=== PATIENT | male | born 1955 | race Caucasian/White ===

== ENCOUNTER 2025-04-25 06:28 | Day surgery (SDC) | payer OTHER, SELFPAY | END 2025-04-25 14:38 | disposition home or self-care (01) | LOC: GI 06:28 | PROVIDERS: ATTENDING PHYSICIAN Internal Medicine Gastroenterology | DX: Z12.11 Encounter for screening for malignant neoplasm of colon (principal); Z86.0100 Personal history of colon polyps, unspecified; K57.30 Diverticulosis of large intestine without perforation or abscess without bleeding; K64.8 Other hemorrhoids | CPT/HCPCS: G0105 ==

== ENCOUNTER 2025-05-08 12:26 | Inpatient (IN) | payer OTHER, SELFPAY ==
[2025-05-08] VITALS (19 sets, daily range): BP systolic 96–180; BP diastolic 66–117; BMI 26.7
--- NOTE | 2025-05-08 11:14 | ED.GENMED ---
History of Present Illness
General
Chief Complaint: Chest Pain
Time Seen by Provider: 05/08/25 11:10
History of Present Illness
History of Present Illness:
PAST MEDICAL HISTORY AND REVIEW OF OLD RECORDS
- The patient denies any significant past medical history. He has never been to a sales enablement lead. He did have a colonoscopy earlier this month that showed diverticula.
Note:
CHIEF COMPLAINT(S)
Chest pressure since last night
HISTORY OF PRESENT ILLNESS
The patient is a 68-year-old male who presents with chest pressure that began at approximately 9:00 PM last night. He describes the sensation as constant since its onset, with no significant variation in intensity over time. The patient reports that
the chest pressure feels like a heavy weight and is localized to the chest area. He did experience relief temporarily after vomiting. The patient denies a history of cardiac issues and has never been evaluated by a sales enablement lead. He has not
experienced any significant kidney problems or undergone dialysis in the past. Upon evaluation in the emergency department, an electrocardiogram was obtained, which suggested the possibility of a myocardial infarction. He received aspirin and
nitroglycerin, the latter of which did not provide noticeable relief.
The patient initially described pain using 2 fingers to the lower part of the chest wall anteriorly near the midline however later in the stay in the emerged part stated that he was pain-free.
PHYSICAL EXAM
General: Alert, no acute distress. Joking.
Skin: Warm, dry.
Head: Normocephalic, atraumatic.
Neck: Supple, trachea midline.
Eyes, Ears, Nose, and Throat: Oral mucosa moist.
Cardiovascular: Normal peripheral perfusion, no edema. No significant chest wall tenderness.
Respiratory: Respirations are non-labored. Breath sounds are equal. Regular rhythm.
Gastrointestinal: Abdomen nondistended.
Back: Normal range of motion, normal alignment.
Musculoskeletal: Normal range of motion, normal strength.
Neurological: Alert and oriented to person, place, time, and situation, no focal neurological deficit observed.
Psychiatric: Cooperative, appropriate mood and affect.
PROBLEM LIST
Acute: Inferior ST elevation ND
DIFFERENTIAL DIAGNOSIS
The Differential Diagnosis includes, in no particular order and is not limited to:
1. Myocardial infarction
2. Gastroesophageal reflux disease
3. Pulmonary embolism
4. Aortic dissection
5. Pericarditis
6. Costochondritis
7. Pneumothorax
8. Musculoskeletal chest pain
9. Esophageal spasm
10. Panic attack or anxiety-related chest pain
RADIOLOGY
-
EKG
- EKG shows ST elevation in the inferior leads along with T wave inversion laterally
LABS
- Troponin 6.2, normal renal function, normal hemoglobin
UPDATE
- The patient arrived at 11:08 AM an EKG was obtained at 11:10 AM which confirms inferior STEMI. Visual Stylist team came down immediately and I notified Dr. Campo of the patient presentation even before the patient arrived.
SUMMARY OF ENCOUNTER
The patient, a 68-year-old male, presented to the emergency department with chest pressure that began last night. An electrocardiogram (EKG) confirmed an inferior ST segment elevation myocardial infarction (STEMI) with respiratory changes. The
patient was evaluated by Dr. Jinny Herrera, and Dr. 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
EMERGENCY TREATMENTS ADMINISTERED
Prior to arrival, the patient received aspirin. In the emergency department, he was administered ticagrelor (Brilinta) and started on heparin.
MANAGEMENT OF THE PATIENTS CARE WAS DISCUSSED WITH
The patients care was discussed with Dr. Campo, Dr. Jinny Herrera, and Dr. Hardin, who may take the patient to the mill labor supervisor for further intervention.
MEDICATION RECONCILIATION
The patient received aspirin, ticagrelor, and heparin during the emergency visit.
MEDICAL DECISION MAKING
-Complexity of Data Reviewed: Acute condition addressed is suspected myocardial infarction.
-Data:
Category 1
My independent interpretation of the EKG confirms inferior ST segment elevation myocardial infarction.
Category 3
Discussion of management with Dr. Campo, Dr. Jinny Herrera, and Dr. Hardin.
DIAGNOSIS
Myocardial infarction, ST elevation (STEMI) of inferior wall, initial episode of care (I21.11).
Phy Exam
Physical Exam
Physical Exam:
See HPI
Scores
Heart Score for Chest Pain Patients
STEMI patient?: Yes
Course
Orders/Labs/Results
Orders:
Orders
05/08/25
Electrocardiogram (*1) Stat
Reason for Study: Chest Pain
Comment: DONE
05/08/25 Lunch
Cholesterol Lowering
At Your Request: Full Participation
Does patient need a safe tray?: No
Cholesterol Lowering: Sodium, 2 Gram
05/08/25 11:11
Complete Blood Count/With Diff Urgent
Comprehensive Metabolic Panel Urgent
PTT Urgent
Prothrombin Time Urgent
Troponin I Urgent
05/08/25 11:13
Heparin 5,000 units IV NOW STA
Pharmacy Request to Place See Dose Instructions PO NOW STA
Discontinue all Active Warfarin orders?: Yes
Nursing to Place Non Medication Order As Directed
Physician Order: PTT 6 hours after initial start of Heparin infusion
Above order entered?: Yes
05/08/25 11:15
Heparin 74226 Units/250 ml 25,000 units in 250 ml IV PER PROTOCOL
Weight to be used for heparin protocol in kilograms (kg):: 91.7
Protocol:: Cardiac Tx/Acute Coronary
PTT Goal Range to be used:: PTT 73 to 111 seconds
Order type:: Initial
INITIAL Infusion Dose (UNITS/KG/hr) & then follow protocol:: 15 units/kg/hr
Infusion Dose in UNITS/hr & then follow protocol (UNITS/hr):: 1,400
INFUSION RATE in mL/hr & then follow protocol (mL/hr):: 14
PTT less than or equal to 64 seconds:: Increase rate by 200 units/hr (+ 2 mL/hr)
PTT 64.1 to 72.9 seconds:: Increase rate by 100 units/hr (+ 1 mL/hr)
PTT 73 to 111 seconds:: Target Range. No change in rate.
PTT 111.1 to 130.9 seconds:: Decrease rate by 100 units/hr (- 1 mL/hr)
PTT 131 to 199.9 seconds:: HOLD for 1 hr. Then decrease rate by 200 units/hr (- 2 mL/hr)
PTT greater than or equal to 200 seconds:: HOLD for 2 hrs & Notify Provider. Then decrease by 200 units/hr (-
2 mL/hr)
Lab follow-up:: Each change, PTT q6h until 2 consecutive are therapeutic. Then PTT
daily.
05/08/25 11:16
Fentanyl Citrate/Pf [Sublimaze] 100 mcg .ROUTE .STK-MED ONE
Heparin 10,000 units .ROUTE .STK-MED ONE
Heparin 1000 Units/500 ml [Heparin] 1,000 units in 500 ml .ROUTE .STK-MED
Heparin Sodium,Porcine/Ns/Pf [Heparin 2000 Units/1000 ml] 2,000 unit in 1,000 ml .ROUTE .STK-MED
Lidocaine HCl/Pf [Xylocaine-Mpf 1% Vial] 100 mg .ROUTE .STK-MED ONE
Midazolam HCl [Versed] 2 mg .ROUTE .STK-MED ONE
Nitroglycerin [Tridil] 1,500 mcg .ROUTE .STK-MED ONE
Verapamil Injectable [Isoptin/Verapamil Injection] 5 mg .ROUTE .STK-MED ONE
05/08/25 11:18
Ticagrelor [Brilinta] 180 mg .ROUTE .STK-MED ONE
05/08/25 11:19
Heparin 5,000 units .ROUTE .STK-MED ONE
05/08/25 11:30
Heparin 91671 Units/250 ml 25,000 units in 250 ml IV PER PROTOCOL
Weight to be used for heparin protocol in kilograms (kg):: 91.7
Protocol:: Cardiac Tx/Acute Coronary
PTT Goal Range to be used:: PTT 73 to 111 seconds
Order type:: Initial
INITIAL Infusion Dose (UNITS/KG/hr) & then follow protocol:: 15 units/kg/hr
Infusion Dose in UNITS/hr & then follow protocol (UNITS/hr):: 1,400
INFUSION RATE in mL/hr & then follow protocol (mL/hr):: 14
PTT less than or equal to 64 seconds:: Increase rate by 200 units/hr (+ 2 mL/hr)
PTT 64.1 to 72.9 seconds:: Increase rate by 100 units/hr (+ 1 mL/hr)
PTT 73 to 111 seconds:: Target Range. No change in rate.
PTT 111.1 to 130.9 seconds:: Decrease rate by 100 units/hr (- 1 mL/hr)
PTT 131 to 199.9 seconds:: HOLD for 1 hr. Then decrease rate by 200 units/hr (- 2 mL/hr)
PTT greater than or equal to 200 seconds:: HOLD for 2 hrs & Notify Provider. Then decrease by 200 units/hr (-
2 mL/hr)
Lab follow-up:: Each change, PTT q6h until 2 consecutive are therapeutic. Then PTT
daily.
05/08/25 12:[address] See Dose Instructions IV DIRECTED
05/08/25 12:26
Admit Patient As Directed
Co-Sign Provider:
Level of Care: Inpatient admission
Assign to:: IVU
Physician / Group: Jahaira
Diagnosis: Late STEMI pain free
Reason for Hospitalization: Late Inferior STEMI pain free
Expected length of stay greater than two midnights?: Yes
ELOS- Estimated Length of Stay in days: 5
I certify the patient meets the requirements for IP care: Yes
Code Status As Directed
Resuscitation Status: Full Code
VTE Contraindication Routine
VTE Mechanical Device Contraindication: Medical Contraindication
Pharmocologic Contraindication: Medical Contraindication
Activity As Directed
Activity Level: Out of Bed- Ad Deborah
Activity Frequency: Ad Deborah
Visual Stylist Procedure As Directed
Cardiac Cath Procedure: cardiac catheterization
Notify MD As Directed
Notify physician if: immediately for chest pain or bleeding from access site(s)
Radial Artery Hemostasis Method As Directed
Instructions:: 3 mL out at 1 hour post placement of band
3 mL out at 1 1/2 hours post placement of band
3 mL out at 2 hours post placement of band
Off at 2 1/2 hours post placement of band
If any oozing or hemotoma occurs:: re-inflate band and call provider
Site Checks As Directed
Check access site for bleeding/hematoma: Yes
Comment: on arrival, Q15min x4, Q30min x2, Q1 hr x2, Q2 hr x2, Q4 hr or per
protocol
Vascular Checks As Directed
Location: distal to access site - pulse check
Frequency: Other
Comment: on arrival, Q15min x4, Q30min x2, Q1 hr x2, Q2 hr x2, Q4 hr or per protocol
Vital Signs As Directed
Frequency: Other
Additional Instructions:: on arrival, Q15min x4, Q30min x2, Q1 hr x2, Q2 hr x2, then Q4 hr or per unit
protocol
PRN Pain Medication Management As Directed
May give lesser potent ordered pain med per pt: Yes
preference::
Protocol:: Medication orders for pain may be administered in a
manner that supports deferring to patient preference
when the pt is:
- Requesting an ordered lesser potent pain medication.
Least to most potent pain medications are defined
as: acetaminophen < NSAID < tramadol < opioids
(morphine, oxycodone, hydromorphone).
- Requesting a lesser dose of the same medication IF
ORDERED.
- Requesting a less intrusive route of administration
if both routes are prescribed by the provider (PO <
IV).
05/08/25 12:30
Troponin I Q8H
Comment: Obtain until peak and falling
0.9% Sodium Chloride 1000 ml [Nss] 1,000 ml IV PER PROTOCOL
Infusion rate in mL/kg/hr:: 1.5
Infusion rate in mL/hr:: 138
Duration of infusion (hours):: 3
05/08/25 12:33
Complete Blood Count/No Diff Urgent
Comment: Obtain baseline before beginning heparin infusion if not already collected
Glycohemoglobin (HgbA1c) Routine
Notify MD As Directed
Notify physician if: PTT is greater than or equal to 200.
05/08/25 13:00
Flush (0.9% Sodium Chloride) [Flush (Nss)] See Dose Instructions IV PER PROTOCOL
05/08/25 13:09
Cardiothoracic Surgery Consult Routine
Consulting Provider: William Vázquez
Was physician already notified: Yes
Reason for Consult: Multivessel coronary artery disease
05/08/25 13:11
Echo 2D MMode Color/Doppler [Echo 2D MMode Color/Doppler] Routine
Reason for Study: Inferior wall ND
Cardiology Consult: Kavin Campo
05/08/25 13:19
Fentanyl Citrate/Pf [Sublimaze] 100 mcg .ROUTE .STK-MED ONE
Heparin 10,000 units .ROUTE .STK-MED ONE
Midazolam HCl [Versed] 2 mg .ROUTE .STK-MED ONE
05/08/25 17:00
PTT Urgent
Comment: Obtain baseline before beginning heparin infusion if not already collected
Heparin 08877 Units/250 ml 25,000 units in 250 ml IV PER PROTOCOL
Weight to be used for heparin protocol in kilograms (kg):: 91.7
Protocol:: Cardiac Tx/Acute Coronary
PTT Goal Range to be used:: PTT 73 to 111 seconds
Order type:: Initial
INITIAL Infusion Dose (UNITS/KG/hr) & then follow protocol:: 12 units/kg/hr
Infusion Dose in UNITS/hr & then follow protocol (UNITS/hr):: 1,000
INFUSION RATE in mL/hr & then follow protocol (mL/hr):: 10
PTT less than or equal to 64 seconds:: Increase rate by 200 units/hr (+ 2 mL/hr)
PTT 64.1 to 72.9 seconds:: Increase rate by 100 units/hr (+ 1 mL/hr)
PTT 73 to 111 seconds:: Target Range. No change in rate.
PTT 111.1 to 130.9 seconds:: Decrease rate by 100 units/hr (- 1 mL/hr)
PTT 131 to 199.9 seconds:: HOLD for 1 hr. Then decrease rate by 200 units/hr (- 2 mL/hr)
PTT greater than or equal to 200 seconds:: HOLD for 2 hrs & Notify Provider. Then decrease by 200 units/hr (-
2 mL/hr)
Lab follow-up:: Each change, PTT q6h until 2 consecutive are therapeutic. Then PTT
daily.
Pharmacy Request to Place See Dose Instructions IV DIRECTED
Pharmacy Request to Place See Dose Instructions PO NOW
Discontinue all Active Warfarin orders?: Yes
Heparin Protocol- PTT Orders As Directed
PTT per Heparin protocol: -Obtain CBC and baseline PTT - if not already collected.
-Obtain PTT 6 hours from start of infusion. Then, every 6 hours until 2 consecutive
PTT's are therapeutic. Then, PTT Daily.
-With each rate change, obtain PTT every 6 hours until 2 consecutive PTT's are
therapeutic. Then, PTT Daily.
05/08/25 18:00
Atorvastatin [Lipitor] 80 mg PO QPM
05/08/25 20:30
Troponin I Q8H
Comment: Obtain until peak and falling
05/09/25 04:30
Troponin I Q8H
Comment: Obtain until peak and falling
05/09/25 06:00
Basic Metabolic Panel IN AM
Cardiovascular Evaluation IN AM
Complete Blood Count/No Diff IN AM
05/09/25 08:00
Aspirin Chewable [Low Strength Aspirin] 81 mg PO DAILY
Metoprolol Xl [Toprol Xl] 25 mg PO DAILY
Pantoprazole [Protonix] 40 mg PO DAILY
Valsartan [Diovan] 80 mg PO DAILY
05/10/25 06:00
Complete Blood Count/No Diff IN AM
Complete Blood Count/No Diff Q2D
Comment: Notify MD if platelet count is <130,000 or decreases by 50% from baseline
05/11/25 06:00
Complete Blood Count/No Diff IN AM
05/12/25 06:00
Complete Blood Count/No Diff Q2D
Comment: Notify MD if platelet count is <130,000 or decreases by 50% from baseline
05/14/25 06:00
Complete Blood Count/No Diff Q2D
Comment: Notify MD if platelet count is <130,000 or decreases by 50% from baseline
05/16/25 06:00
Complete Blood Count/No Diff Q2D
Comment: Notify MD if platelet count is <130,000 or decreases by 50% from baseline
05/18/25 06:00
Complete Blood Count/No Diff Q2D
Comment: Notify MD if platelet count is <130,000 or decreases by 50% from baseline
05/20/25 06:00
Complete Blood Count/No Diff Q2D
Comment: Notify MD if platelet count is <130,000 or decreases by 50% from baseline
05/22/25 06:00
Complete Blood Count/No Diff Q2D
Comment: Notify MD if platelet count is <130,000 or decreases by 50% from baseline
05/24/25 06:00
Complete Blood Count/No Diff Q2D
Comment: Notify MD if platelet count is <130,000 or decreases by 50% from baseline
Abnormal Lab Results
05/08/25 05/08/25
11:11 11:31
RBC 4.68 L 10^6/uL
(4.70-6.10)
MCH 31.2 H pg
(27.0-31.0)
Neutrophils % 77.6 H %
(42.2-75.2)
Lymphocytes % 14.1 L %
(20.5-51.1)
APTT 82.5 H Sec
(23.4-35.0)
Chloride 110 H mmol/L
(98-107)
Carbon Dioxide 21 L mmol/L
(22-30)
Glucose 130 H mg/dl
(70-99)
Calcium 10.3 H mg/dl
(8.4-10.2)
AST 67 H U/L
(17-59)
Troponin I 6.220 H* ng/ml
POC ACT Low Range 213 H Seconds
(116-155)
05/08/25 11:11
Vital Signs
Initial and Last Documented VS:
Initial Vital Signs
Pulse Resp BP Pulse Ox
68 15 156/117 99
05/08/25 11:08 05/08/25 11:08 05/08/25 11:08 05/08/25 11:08
Last Documented Vital Signs
Pulse Resp BP Pulse Ox
69 20 156/117 99
05/08/25 11:16 05/08/25 11:16 05/08/25 11:11 05/08/25 11:08
*Pulse Oximetry
Patient hypoxic: no
*Critical Care Note
Total Time (30-74mins, 75-104mins- exclusive of procedures): Not Applicable
ED Attending Note
-
Portions of this chart may have been created with voice recognition software.� Occasional wrong word or��sound alike� substitutions may have occurred due to the inherent limitations of voice recognition software.
Discharge Plan
Departure
Patient Disposition: Admit
Date of Disposition: 05/08/25
Time of Disposition: 11:14
Presentation/result/management discussed w/ accepting MD/DO: jahaira
Discharge Problem:
Acute ST elevation myocardial infarction (STEMI) of inferior wall
Interventions
Interventions:
*Risk Screen - Suicide Last Done: 05/08/25 11:18
*General Assessment Last Done: 05/08/25 11:18
*Neglect/Abuse Screening Last Done: 05/08/25 11:18
*ED- Fall Risk Assessment Last Done: 05/08/25 11:18
*ED COVID-19 Vaccine History Last Done: 05/08/25 12:18
*Nursing Disposition Last Done: 05/08/25 11:23
ED- Cardiac Assessment Last Done: 05/08/25 11:18
Discharge Date and Time
Discharge Date/Time: 05/08/25 11:24
[2025-05-08 11:19] LABS: Hematocrit 40.9 % (39.0-52.0); Hemoglobin 14.6 g/dL (13.0-18.0); Mean Corp Hgb Conc. 35.7 g/dL (33.0-37.0); Mean Corpuscular Volume 87.4 fL (80.0-94.0); Nucleated Red Blood Cells % 0 % (-); Platelet Count 253 10^3/uL (130-400); Red Cell Dist. Width 12.3 % (11.5-14.5)
--- NOTE | 2025-05-08 11:20 | EDRN ---
Dr. Jorgensen at bedside upon pt arrival. Pt recieved 324 mg of aspirin and 1 SL nitro by EMS. 180 mg of Brilinta given at 1108, 5000 u of heparin given at 1110 by RN. IV access gained, pt denying CP after SL nitro. Dr. Herrera and Arlene, STAND GRINDER at
bedside with patient and assisted pt to laborer driver. Verbal report given to Arlene, seed analysis laboratory assistant RN.
[2025-05-08] MEDS: HEPARIN 5000 UNITS IV (11:24)
[2025-05-08 11:29] LABS: INR 0.99; PT 13.6 Sec (11.4-14.6)
[2025-05-08 11:35] LABS: ALT (SGPT) 25 U/L (0-50); AST (SGOT) 67 U/L (17-59); Albumin 4.4 g/dl (3.5-5.0); Alkaline Phosphatase 72 U/L (38-126); Blood Urea Nitrogen 13 mg/dl (9-20); Calcium 10.3 mg/dl (8.4-10.2); Carbon Dioxide 21 mmol/L (22-30); Chloride 110 mmol/L (98-107); Estimated Creatinine Clearance 90 ml/min; Glucose 130 mg/dl (70-99); Potassium 3.8 mmol/L (3.5-5.1); Sodium 138 mmol/L (135-145); Total Protein 6.9 g/dl (6.3-8.2); eGFR > 60.00
[2025-05-08 11:36] LABS: APTT 82.5 Sec (23.4-35.0)
[2025-05-08 11:36] LABS: ACT-LR - POC 213 Seconds (116-155)
--- NOTE | 2025-05-08 11:36 | CON.CAR ---
Addendum entered and electronically signed by Kavin Herrera MD 05/08/25 18:25:
69-year-old man with hypertension and hypercholesterolemia who presented with an inferior STEMI earlier today, found to have distal occlusion of the RCA with moderate to severe distal left main disease, moderate LAD disease and severe ostial
circumflex disease. Initial plan for CT surgical evaluation, but subsequently underwent urgent PCI of the distal RCA beyond the PDA for recurrent pain. Now pain-free.
PMH: Hypertension, hyperlipidemia
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
Rest of history as below per Arlene Palafox. Reviewed in detail and agree, unless otherwise specified.
Seen status post PCI, recovering from presumed vagal episode now feels well, blood pressure 130/80, heart rate 60s, significant other Kari at bedside, who is a nurse, head neck exam unremarkable, lungs are clear, regular rate and rhythm, abdomen
benign, right groin puncture site overall intact, radial site intact
Initial EKG, sinus rhythm, inferior ST segment elevation ID, with evolving Q waves
Hemoglobin 14.6, platelets 253, BUN and creatinine are 13 and 0.9, AST is 67,Peak troponin thus far is 34.3 initially 6.2
Impression:
Inferior STEMI
Three-vessel CAD with moderate to severe left main disease
Hypertension
Hypercholesterolemia
Remote tobacco use
Plan:
Standard post ID care with optimization of GDMT
CT surgical evaluation with possible CABG in 1 to 2 months
Original Note:
Consultation
Consultation Request
Date/Time Consultation Requested: 05/08/25
Date/Time Consultation Performed: 05/08/25
Requesting Provider: Dr. Jorgensen
Performing Provider: Dr. EUFEMIA Herrera
Reason for Consultation: Chest pain, pre-hospital STEMI
Medical History
-
History of Present Illness:
Patient came to [facility] ER as a prehospital STEMI alert and cardiology consulted to see patient in the ER emergently. I arrived in the ER 15 seconds following patient's arrival from home. Nursing and EMS in the room, conferred with ER attending.
Talked with patient, chest pain started after showering and prior to going to bed last night at about 9 PM. Pain resolved and patient went to bed pain-free. Patient initially awoke pain-free this morning, but while up and moving around pain
recurred and he then had ongoing resting pain prompting the call to 911. Patient was a prehospital STEMI alert with inferior ST elevation. Patient was given aspirin in the ambulance. Upon arrival to the ER he was given heparin bolus and was
loaded with Brilinta. Patient was pain-free during my questioning. No history of CAD. Patient has HTN and takes valsartan 80 mg daily. Patient has been told he has high cholesterol in the past, but was not interested in statin medication. No
known history of diabetes. No family history of CAD.
PMH:
HTN
Untreated hyperlipidemia
Past Medical History
Past Medical History: Other (in HPI)
Past Surgical History: Tonsilectomy
Social History
Tobacco: Former Smoker
Alcohol: Occasional
Drug: None
Personal: Partner
Living: With Family
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
Family History
Family History: Reviewed & Not Pertinent
Allergies / Home Medications
Allergy/AdvReac Type Severity Reaction Status Date / Time
No Known Allergies Allergy Verified 05/08/25 11:08
�Medication �Instructions �Recorded �Confirmed �Type
valsartan 80 mg tablet 80 mg PO DAILY Blood Pressure 05/08/25 05/08/25 History
Review of Systems
-
History Source: Patient and Family (partner helps with HPI)
All other systems: Negative unless noted
Physical Exam
Vital Signs
Pulse Resp BP Pulse Ox
69 20 156/117 99
05/08/25 11:16 05/08/25 11:16 05/08/25 11:11 05/08/25 11:08
GEN: NAD. AAOx3
HEENT: EOMI
LUNGS: RA. CTA B/L, no wheeze
CV: SR on tele. Reg, S1/S2, no murmur
ABD: ND
EXT: No edema B/L LE. 2+ radial and PT pulses B/L
NEURO: Gross non-focal
SKIN: No rash
Lab Results
05/08/25 11:11
05/08/25 11:11
Impression / Plan
-
PCP: Dr. Becker
Card: None
Impression:
Admitted with chest pain and pre-hospital STEMI alert 05/08/25
Chest pain/ACS
Acute inferior ST elevation on ECG 05/08/25
HTN
Untreated hyperlipidemia
Plan:
-Patient came to [facility] ER as a prehospital STEMI alert and cardiology consulted to see patient in the ER emergently. I arrived in the ER 15 seconds following patient's arrival from home. Nursing and EMS in the room, conferred with ER attending.
Talked with patient, chest pain started after showering and prior to going to bed last night at about 9 PM. Pain resolved and patient went to bed pain-free. Patient initially awoke pain-free this morning, but while up and moving around pain
recurred and he then had ongoing resting pain prompting the call to 911. Patient was a prehospital STEMI alert with inferior ST elevation. Patient was given aspirin in the ambulance. Upon arrival to the ER he was given heparin bolus and was
loaded with Brilinta. Patient was pain-free during my questioning. No history of CAD. Patient has HTN and takes valsartan 80 mg daily. Patient has been told he has high cholesterol in the past, but was not interested in statin medication. No
known history of diabetes. No family history of CAD.
-ECG reviewed by me shows inferior ST elevation concerning for ST elevation ID
-Patient given aspirin 324 mg in the ambulance prior to arrival
-Patient given heparin bolus IV in the ER
-Patient given Brilinta loading dose in the ER
-Pain-free in the ER, BP 156/117. All at the same time the patient was then able to be transported upstairs to the [facility] for an attempt at emergent revascularization.
-Check CVE, patient indicates that he does not like statin medications
-We reviewed cardiac catheterization procedure including risk versus benefit. We talked about DAPT if PCI indicated and patient cannot think of a contraindication. Overall patient and partner at bedside are agreeable to cardiac catheterization.
[2025-05-08 11:45] LABS: Troponin I 6.220 ng/ml
[2025-05-08] MEDS: NSS 1000 IV (13:05)
--- NOTE | 2025-05-08 13:17 | W.PN.UPDATE ---
Update Note
Progress Note Update
Patient was pain-free following cardiac catheterization that revealed multivessel CAD. Approximately 30 minutes after returning to his room patient started with chest pain similar to the resting pain he had this morning prior to admission. Heparin
gtt running. Patient had been loaded with aspirin and Brilinta prior to Armored Vehicle Officer. Interventional back into evaluate patient and tentative plan is to return to the Armored Vehicle Officer for RCA PCI and he still needs CTS evaluation for residual MV CAD.
--- NOTE | 2025-05-08 13:30 | ITS.CL.CATH ---
Proofreader - Catheterization
Cardiac Catheterization
Procedure Report:
LEFT HEART CATHETERIZATION
Date of Procedure: May 08, 2025
Referring: [facility]
PROCEDURES:
1. Left heart catheterization with coronary and single-plane left ventriculography
INDICATION: This is a 69-year-old gentleman with a past medical history notable for hypertension treated with valsartan and. He reported the onset of severe substernal chest pressure last evening with symptoms lasting throughout the night. 911 was
called and his prehospital electrocardiogram was suggestive of an evolving inferior wall myocardial infarction. In the ambulance he became nauseated and vomited and his chest pain completely resolved. He arrived at [facility] emergency
room free of anginal symptoms. His electrocardiogram revealed inferior ST segment elevation with Q waves noted in 2 3 and aVF. He was referred for emergent coronary angiography and reported that he was chest pain-free on arrival and reiterated no
symptoms throughout the procedure.
ACCESS: Right radial artery, 6 Georgian sheath
HEMODYNAMICS : (mmHg)
AO (s/d) : 147/85
LV (s/d) : 152/8
LVEDP : 17
CORONARY FINDINGS
DOMINANCE: Right
LEFT MAIN: 75% distal left main stenosis best seen in LAO1/CRA44
LEFT ANTERIOR DESCENDING: The LAD has a 50% stenosis as it arises from the left main and 60-70% mid LAD stenosis involving the origin of a large bifurcating diagonal branch. The LAD is tightest just beyond the diagonal branchy. The mid LAD between
the 1st and 2nd diagonal branches has tandem 50% narrowing in beyond the second diagonal branch has diffuse luminal irregularities with the distal vessel wrapping around the apex. The first diagonal is large and bifurcates proximally into 2 large
daughter branches. The larger more medial daughter branch has a 60% mid stenosis just beyond the bifurcated segment.
CIRCUMFLEX: The circumflex is a small nondominant vessel supplying a single small obtuse marginal branch.
RIGHT CORONARY ARTERY: The right coronary artery is a dominant vessel with a proximal duran's crook. There is a 50% mid stenosis beyond then RV marginal branch. The distal right coronary artery becomes 100% occluded with faint [id number]
collaterals filling the PDA.
VENTRICULOGRAPHY: Left ventriculography is performed in MARTINO projection. The digital single-plane left ventricular ejection fraction is visually estimated at 50% with posterior basal and diaphragmatic inferior hypokinesis. The inferoapical wall
moves best.
Note: Angioplasty was not undertaken as the patient continued to report throughout the procedure that he was experiencing no chest pain and had experienced symptoms for over 12 hours. His initial troponin returned during the procedure measuring
6.22 ng/mL. PCI was not undertaken given the absence of symptoms.
SEDATION: 18 minutes of procedural sedation was utilized. An independent biomedical engineering technician was present to assist with and help manage the patient's level of consciousness and physiologic status.
RADIATION SUMMARY: Fluoro Time (min): 4.0, Dose (mGy): 645, DAP (Gy.cm2) : 49.5
Closure Device: TR band
CONCLUSIONS
1. Late presentation of inferior wall myocardial infarction with symptoms present for over 12 hours. He became chest pain-free en route to the hospital and has remained chest pain-free prior to and throughout the procedure. The distal right
coronary artery was found to be 100% occluded and his troponin measured 6.22 ng/mL on admission. His late presentation of the inferior wall myocardial infarction will be treated medically
2. Residual coronary disease involving the distal left main, proximal and mid LAD, and ostial circumflex would likely benefit from coronary artery bypass surgery
3. Low normal LVEF
RECOMMENDATIONS
1. Patient will be admitted and CT surgery agree consulted. Would consider surgical revascularization after Brilinta washout
2. Medical therapy with high intensity statin and good blood pressure control
3. Continue to trend troponin and will obtain echocardiogram
Copy to: Dr. Donavan Becker
--- NOTE | 2025-05-08 13:36 | CONSULT.CT ---
Consultation
-
Date/Time Consultation Requested: 05/09/25
Date/Time Consultation Performed: 05/09/25
Requesting Provider: Kavin Campo
Performing Provider: Hilda BRADLEY for William Vázquez MD
Reason for Consultation: CABG
Patient History
Physicians
Family Physician: Rashad Becker
Outpatient Print Line Supervisor: none prior to admissin
Inpatient Print Line Supervisor: Kavin Campo
History of Present Illness
69 year old male with PMH significant for HTN and untreated hypercholesterolemia, was admitted this morning to [facility] ER as a prehospital STEMI alert (inferior wall). Patient experienced midsternal chest pain started after showering approximately
2100. Vomited x 1. Pain resolved with rest. This morning, pain recurred and patient called 911. Patient given ASA in ambulance and heparin bolus, Brilinta load in the ER. Patient taken to the phlebotomy lab assistant and found to have multivessel coronary
disease. Pain recurred approximately 30 minutes after returning from the cath and patient returned to phlebotomy lab assistant for stenting of culprit RCA lesion. CT Surgery consulted for residual multivessel coronary disease.
Pertinent negatives: Denies CVA/TIA, dysphagia, hepatitis, bowel/bladder issues, DVT/PE, chest radiation, vein stripping
Past Medical History
Past Medical History: HTN, Hypercholesterolemia (untreated) and Other (left zygomatic arch fracture; skin cancer R neck (removed))
Past Surgical History
Past Surgical History: Tonsilectomy and Other (left shoulder scope)
Family History
Mother: N/A
Father: N/A
Social History
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
Allergies
Allergy/AdvReac Type Severity Reaction Status Date / Time
No Known Allergies Allergy Verified 05/08/25 11:08
Home Medications
�Medication �Instructions �Recorded �Confirmed �Type
valsartan 80 mg tablet 80 mg PO DAILY Blood Pressure 05/08/25 05/08/25 History
Review of Systems
-
History Source: Patient
General: Reports No Symptoms
HEENT: Reports No Symptoms
Respiratory: Reports No Symptoms
Cardiac: Reports Chest Pain (30 minutes s/p cath)
Abdomen/GI: Reports No Symptoms
: Reports No Symptoms
Musculoskeletal: Reports No Symptoms
Skin: Reports No Symptoms
Neurological: Reports No Symptoms
Vascular: Reports No Symptoms
Physical Exam
Vital Signs
Pulse 69 05/08/25 11:16
Resp Rate 20 05/08/25 11:16
Blood pressure 156/117 05/08/25 11:11
Blood pressure extremity used: Right upper arm 05/08/25 11:08
Position: Sitting 05/08/25 11:08
MAP (cuff-Carlos Monitor) 130 05/08/25 11:11
SaO2 99 05/08/25 11:08
Oxygen Mode of Delivery Room air 05/08/25 11:18
Can the patient verbally communicate their pain? Yes 05/08/25 12:18
Actual Weight 91.7 kg 05/08/25 11:12
Body Mass Index (BMI) 26.7 05/08/25 11:12
Labs
05/08/25 11:11
PT 13.6 Sec (11.4-14.6) 05/08/25 11:11
APTT 82.5 Sec (23.4-35.0) H 05/08/25 11:11
Troponin I 6.220 ng/ml H* 05/08/25 11:11
Diagnostic Studies
Left Heart Cath (05/08/25):
LEFT MAIN: 75% distal left main
LEFT ANTERIOR DESCENDIN% stenosis as it arises from the left main and 60-70% mid LAD stenosis involving the origin of a large bifurcating diagonal branch. The first diagonal is large and bifurcates proximally into 2 large daughter branches.
The larger more medial daughter branch has a 60% mid stenosis just beyond the bifurcated segment
CIRCUMFLEX: small nondominant vessel supplying a single small obtuse marginal branch
RIGHT CORONARY ARTERY: proximal duran's crook. 50% mid stenosis beyond then RV marginal branch. 100% distal right coronary artery with faint [id number] collaterals filling the PDA.
VENTRICULOGRAPHY: Left ventriculography is performed in MARTINO projection. The digital single-plane left ventricular ejection fraction is visually estimated at 50% with posterior basal and diaphragmatic inferior hypokinesis. The inferoapical wall
moves best.
clinical laboratory director for stent (05/08/25):
Successful stenting of the distal right coronary artery with placement of a 2.25 x 26 mm [place] stent that was postdilated distally with a 2.25 mm noncompliant balloon and in the proximal and midportion with a 3.25 mm noncompliant balloon to 20-22 ysabel
Exam
General: Well Developed, Well Nourished, No Apparent Distress and Comfortable
HEENT: Normocephalic, Anicteric, Moist Mucous Membranes and PERRLA
Respiratory: Clear
Cardiac: S1/S2 and Regular Rhythm
GI: Soft, Non Tender, Non Distended and Normal Bowel Sounds
Rectal: Deferred by Provider
Skin: Warm and Dry
Neuro: AO x 3, No Motor Deficits and CN X-XII Intact
Extremities: Pulses (+2 DP pulses B/L)
Lymph: No Lymphadenopathy
Psych: Calm
Assessment / Plan
-
69 year old male with inferior wall STEMI/3VCAD-received Brillinta 05/07
- pain s/p cath, returned to phlebotomy lab assistant for urgent PCI of RCA
- surgeon to review imaging and discuss surgical risk/benefit with patient
- pre-op diagnostics ordered
Data Reviewed
-
EKG: Report Reviewed by me and Discussed with Physician
Financial Project Manager: Report Reviewed by me and Discussed with Physician
Radiology: Report Reviewed by me and Discussed with Physician
Labs: Labs Reviewed by me and Discussed with Physician
Old Records: Reviewed
[2025-05-08 14:25] LABS: ACT-LR - POC > 397 Seconds (116-155)
--- NOTE | 2025-05-08 14:28 | PTCARENOTE ---
Pt received post cath at 1210. Right rad band intact, site WNL. Pt denied any chest pain on arrival but later started with 2/10 chest pressure. O2 applied at 2LNC. Pt's chest pain started getting worse, Pt stated it was a 6/10. ECG completed,
Jahaira notified. Pt taken back to the labor operator.
[2025-05-08 14:32] LABS: ACT-LR - POC 306 Seconds (116-155)
--- NOTE | 2025-05-08 15:34 | ITS.CL.CATH ---
Pharmacist In Charge Owner - Catheterization
Cardiac Catheterization
Procedure Report:
ANGIOPLASTY REPORT
Date of Procedure: May 08, 2025
Referring: Dr. Kavin Campo
INDICATIONS: This is a 69-year-old gentleman who was admitted to [facility] earlier this morning. He had been experiencing severe substernal chest pressure for the preceding 12-hours and became chest pain free en route to [facility] and remained chest pain free throughout the diagnostic catheterization. He was found to have 100% occlusion of the distal RCA, however, coronary intervention was not undertaken because he was completely chest pain-free. He been asked
multiple times if he was still experiencing symptoms and was consistent with his answer that he was chest pain-free. He was found to have multivessel coronary artery disease and we discussed this possible CT surgical treatment options.
Approximately 30-60 minutes after he was admitted he developed recurring substernal chest pressure graded 6/10 intensity and reported that he was feeling quite uncomfortable with similar symptoms to those experienced last evening. Given the change
in symptoms he was referred for repeat coronary angiography and planned stenting of the distal RCA.
PROCEDURES:
1. Successful stenting of the distal right coronary artery with placement of a 2.25 x 26 mm Kris stent that was postdilated distally with a 2.25 mm noncompliant balloon and in the proximal and midportion with a 3.25 mm noncompliant balloon to 20-22
ysabel
2. Intravascular ultrasound
ACCESS: Right common femoral artery, 6 Finnish sheath
ANGIOPLASTY REPORT: Arterial access was obtained in the right common femoral artery using ultrasound guidance and a 6 Finnish sheath was placed. Heparin, 10,000 units, was administered and the ACT was monitored throughout the procedure. The origin
of the right coronary artery was cannulated with a 6 Finnish JR4 guiding catheter and a BMW guidewire was advanced across the occluded segment in the distal RCA with a moderate degree of difficulty. Balloon angioplasty was performed with a 2.0 x 12
mm [place] balloon and anterograde flow was restored into the PDA and posterolateral branch. The ostium of the posterolateral branch had a stenotic segment at its origin and was wired with a long BMW guidewire with a moderate amount of difficulty.
A 2.25 x 26 mm Kris stent was then advanced over the guidewire and positioned with angiographic and fluoroscopic guidance. The stent was implanted at nominal pressures. Intravascular ultrasound was then performed. The distal portion of the stent
was well-approximated to the arterial wall and appeared appropriately sized. Slow pullback was performed and there was clear underexpansion of the stent near the crux of the vessel back to the distal RCA. The distal portion of the stent was
postdilated with a 2.25 x 12 mm noncompliant balloon while the proximal and midportion of the stent was postdilated with a 3.25 x 12 mm noncompliant balloon that was inflated between 20 and 22 ysabel with a nice angiographic result.
COMPLICATIONS: None
SEDATION: 71 minutes of procedural sedation was utilized. An independent electromedical equipment technician was present to assiste with and help manage the patient's level of consciousness and physiologic status
RADIATION SUMMARY: Fluoro Time (min): 14.3, Dose (mGy): 2162, DAP (Gy.cm2) : 152
CONCLUSION
1. Successful stenting of the distal right coronary artery into the PDA with placement of a 2.25 x 26 mm [place] stent. The distal portion of the stent was postdilated with a 2.25 mm noncompliant balloon while the proximal midportion of the stent was
postdilated with a 3.25 mm noncompliant balloon between 20 and 22 ysabel.
RECOMMENDATIONS
1. Uninterrupted dual antiplatelet therapy for 32-40 days then consider coronary artery revascularization with bypass surgery.
Copy to: Dr. Donavan Becker
[2025-05-08 16:02] LABS: Troponin I 34.300 ng/ml
[2025-05-08] MEDS: TYLENOL 1000 MG PO (16:42)
[2025-05-08] MEDS: TUMS EX (EXTRA STRENGTH) CHEWABLE TABLET 300 MG PO (16:43)
[2025-05-08] MEDS: NITROGLYCERIN PREMIX 250 IV (17:34)
[2025-05-08] MEDS: LIPITOR 80 MG PO (18:07)
[2025-05-08] MEDS: BRILINTA 90 MG PO (19:58)
[2025-05-08 21:31] LABS: Urine Character Clear (Clear)
--- NOTE | 2025-05-08 21:35 | PTCARENOTE ---
Patient received at change of shift resting in the bed. Right radial site with gauze and tegaderm C/D/I. Right groin site with gauze and tegaderm C/D/I. Radial and pedal pulses palpable. Nitroglycerin gtt infusing as ordered, patient states chest
pain as improved since starting nitro gtt and is now chest pain free. Sinus tristan/sinus rhythm on telemetry. Oxygen saturation 97% on room air. Plan of care discussed. Call montero within reach. Care ongoing.
[2025-05-08 21:38] LABS: Urine Red Blood Cell 0-2 /HPF (0-2); Urine White Cell 0-2 /HPF (0-5)
[2025-05-08 22:28] LABS: Troponin I 41.100 ng/ml
[2025-05-09] VITALS (7 sets, daily range): BP systolic 109–124; BP diastolic 68–77; BMI 25.4
[2025-05-09 03:45] LABS: Hematocrit 37.6 % (39.0-52.0); Hemoglobin 13.3 g/dL (13.0-18.0); Mean Corp Hgb Conc. 35.4 g/dL (33.0-37.0); Mean Corpuscular Volume 88.9 fL (80.0-94.0); Platelet Count 203 10^3/uL (130-400); Red Cell Dist. Width 12.3 % (11.5-14.5)
[2025-05-09 04:22] LABS: Troponin I 29.300 ng/ml
[2025-05-09 04:34] LABS: Blood Urea Nitrogen 11 mg/dl (9-20); Calcium 8.8 mg/dl (8.4-10.2); Carbon Dioxide 24 mmol/L (22-30); Chloride 109 mmol/L (98-107); Estimated Creatinine Clearance 81 ml/min; Glucose 104 mg/dl (70-99); HDL Cholesterol 45 mg/dl; LDL Cholesterol, Calculated 91 mg/dl; Magnesium 1.9 mg/dl (1.6-2.3); Potassium 4.0 mmol/L (3.5-5.1); Sodium 137 mmol/L (135-145); Very Low Density Lipoprotein 25 mg/dl (0-30); eGFR > 60.00
[2025-05-09] MEDS: TOPROL XL PO (07:53)
[2025-05-09] MEDS: LOW STRENGTH ASPIRIN 81 MG PO (07:54)
[2025-05-09] MEDS: DIOVAN 80 MG PO (07:54)
[2025-05-09] MEDS: BRILINTA 90 MG PO ×2 (07:54→19:55)
[2025-05-09] MEDS: PROTONIX 40 MG PO (07:54)
--- NOTE | 2025-05-09 10:01 | CM ---
Reviewed chart. Met with Mr. Roger to review discharge plans. He states prior to admission he resides with his family in a spilt-level home without any steps to enter. He states he has five steps to get to bedroom/full bathroom. He states he has
a powder room on the first floor. He states prior to admission he was independent with ambulation and adls. . He states he does not have any DME in the home. He states he has a prescription plan with Lluvia Hickman and uses [facility].
Telephone call to Lluvia, ([phone]) to check on co-pay for Brilinta 90 mg po bid. His co-pay for Brilinta is $463.17 a month. His co-pay for Ticagrelor 90 mg po bid is $10.00 a month. His [facility] does not have Brilinta or Ticagrelor in
stock. Telephone call to [facility] in [place] also does not have Ticagrelor is stock. [facility] on [address] in [place] has 60 tablets in stock. P.A. sent script to [facility] on [address]. He would like his other scripts to go to
the normal [facility] on [address] in [place], [place] Reviewed co-pay of $10.00 a month with him. He is agreeable to the co-pay. Medical work-up in progress. The discharge plan is to return home with his family when medically stable.
--- NOTE | 2025-05-09 10:45 | W.PN.CARDCBS ---
Addendum entered and electronically signed by Ricky Musa MD 05/09/25 14:02:
I saw and examined the patient on morning rounds.
The Brass Cleaner's note was reviewed and I agree with the note.
Comment: Briefly, 69-year-old man presenting with inferior STEMI who underwent left heart catheterization on 05/08/2025 showing multivessel CAD. Distal RCA was identified as the culprit lesion and this was treated with a drug-eluting stent.
Troponin peaked last evening at 41, no need to continue trending
Echo here showed preserved LV function
Today patient is resting comfortably in bed and tells me he has had no further chest discomfort.
No evidence of decompensated heart failure or mechanical complication of IN based on physical exam
Telemetry reviewed which showed sinus rhythm with AIVR and short episodes of nonsustained VT
Recommend medical therapy with aspirin/Brilinta, high intensity statin, beta-kal
Eventual outpatient CT surgery evaluation to discuss surgical revascularization
Original Note:
Today's Communication / Plan
-
Cont Toprol XL and follow tele for NSVT, Troponin peaked at 41, EF preserved, lytes acceptable
Impression / Plan
-
PCP: Dr. Becker
Card: None
Impression:
Admitted with chest pain and pre-hospital STEMI alert 05/08/[address] elevation on ECG 05/08/25
Late presentation of acute IWMI
CAD
75% distal left main, 50% LAD lesion as it arises from the left main and a 60 to 70% mid lesion, 50% mid RCA stenosis and distal RCA 100% occlusion with faint [id number] collaterals by initial cardiac cath 05/08/2025
s/p 2.25 mm Kris BENNY to the distal RCA on second cardiac cath 05/08/2025
HTN
Untreated hyperlipidemia
NSVT
Echo 05/08/2025: EF 55 to 60%, normal diastolic function, normal RV size and function, mild MR, no or aortic insufficiency
Plan:
-Patient came to the ER more than 12 hours into the onset of chest pain on 05/08/2025 and there was evidence of acute inferior ST elevation on the ECG prompting emergent cardiac cath with results noted above. Patient was pain-free and the plan was
for consultation by CT surgery. Upon return to his room following initial cardiac cath patient had recurrent chest pain and was taken back to the Warehouse Pricing And Inventory Clerk with successful stenting of the distal RCA. Chest pain again resolved and no recurrence.
-Patient will see CT surgery in the office for outpatient evaluation and consider plans for revascularization of his remaining CAD including the 75% distal left main lesion.
-Troponin was 6.22 on admission and peaked at 41.1. This was a late presentation of an acute inferior wall IN.
-New to aspirin 81 mg daily
-New to ticagrelor 90 mg BID. Appreciate help of CM on checking cost, the generic ticagrelor is affordable, but his pharmacy will need time to get it into stock so electronic prescription sent by me on 05/09/2025 with planned discharge to home on
05/10/2025 and his pharmacy believes they can get it in stock by then.
-Outpatient dose of valsartan 80 mg daily continued
-New to Toprol XL 25 mg daily
-LDL 91 and new to atorvastatin 80 mg daily
-Cardiac rehab not consulted and will hold off until patient has complete revascularization.
-Telemetry reviewed by me 05/09/2025 and patient with asymptomatic NSVT, potassium 4.0 and magnesium 1.9. New to Toprol XL as noted above, will follow. Recheck BMP in am, ordered by me.
HPI: Patient came to [facility] ER as a prehospital STEMI alert and cardiology consulted to see patient in the ER emergently. I arrived in the ER 15 seconds following patient's arrival from home. Nursing and EMS in the room, conferred with ER attending.
Talked with patient, chest pain started after showering and prior to going to bed last night at about 9 PM. Pain resolved and patient went to bed pain-free. Patient initially awoke pain-free this morning, but while up and moving around pain
recurred and he then had ongoing resting pain prompting the call to 911. Patient was a prehospital STEMI alert with inferior ST elevation. Patient was given aspirin in the ambulance. Upon arrival to the ER he was given heparin bolus and was
loaded with Brilinta. Patient was pain-free during my questioning. No history of CAD. Patient has HTN and takes valsartan 80 mg daily. Patient has been told he has high cholesterol in the past, but was not interested in statin medication. No
known history of diabetes. No family history of CAD.
Progress Note - Consumer Analyst
Subjective
Date of Service: May 09, 2025
He feels well, no chest pain
Objective
Labs:
05/09/25 03:35
05/09/25 03:35
Labs
Hgb 13.3 g/dL (13.0-18.0) 05/09/25 03:35
Hct 37.6 % (39.0-52.0) L 05/09/25 03:35
Plt Count 203 10^3/uL (130-400) 05/09/25 03:35
PT 13.6 Sec (11.4-14.6) 05/08/25 11:11
INR 0.99 05/08/25 11:11
APTT Cancelled 05/08/25 17:00
Sodium 137 mmol/L (135-145) 05/09/25 03:35
Potassium 4.0 mmol/L (3.5-5.1) 05/09/25 03:35
BUN 11 mg/dl (9-20) 05/09/25 03:35
Creatinine 1.0 mg/dL (0.7-1.3) 05/09/25 03:35
Glucose 104 mg/dl (70-99) H 05/09/25 03:35
Troponins
05/08/25 05/08/25 05/08/25
11:11 15:23 21:21
Troponin I 6.220 H* 34.300 H* D 41.100 H*
05/09/25
03:35
Troponin I 29.300 H* D
Vital Signs and I&O:
Vital Signs
Temp Pulse Resp BP Pulse Ox
98.7 F 65 14 115/75 97
05/09/25 03:21 05/09/25 08:00 05/09/25 03:21 05/09/25 07:56 05/09/25 03:21
Vital Signs
Temp Pulse Resp BP Pulse Ox
98.7 F 65 14 115/75 97
05/09/25 03:21 05/09/25 08:00 05/09/25 03:21 05/09/25 07:56 05/09/25 03:21
Intake & Output
05/07/25 05/08/25 05/09/25 05/10/25
06:59 06:59 06:59 06:59
Output Total 100 / 100
Balance -100 / -100
Physical Exam
Physical Exam
GEN: NAD. AAOx3
LUNGS: RA. No wheeze
CV: SR on tele.
EXT: Right radial without hematoma or ecchymosis.
[2025-05-09 10:49] LABS: Glycohemoglobin (HgbA1c) 5.3 % (4.0-5.6)
[2025-05-09] MEDS: LOVENOX 40 MG SC (18:06)
[2025-05-09] MEDS: LIPITOR 80 MG PO (18:06)
--- NOTE | 2025-05-09 19:05 | PTCARENOTE ---
~[id number]: Handoff report received from nightshift RN. Pt Aox4, SB 50s on tele, RA satting 97%, SBP 110s. +2 radial pulses, +1 DP pulses. No edema. Pt denies pain at this time. R radial puncture site CDI, R groin site dressing intact but with old
drainage which has been marked and no change from prior. Patient transported down for CXR/ chest US this AM. All needs met at this time, call montero within reach.
~0409-1382: patient ambulaed multiple times around halls with . VSS. Denies pain at this time.
~[id number]: Medication education provided. Pt denies pain, VSS at this time. All needs met, call montero within reach. Handoff report given to nightshift RN.
--- NOTE | 2025-05-09 21:49 | PTCARENOTE ---
Patient received at change of shift resting in the bed. Denies chest pain. Sinus rhythm/sinus tristan on telemetry. Oxygen saturation 99% on room air. Right radial site ICT CUSTOMER SUPPORT OFFICER, radial pulse palpable. Right groin site with small amount of drainage,
unchanged from previous marking, pedal pulse palpable. Plan of care discussed. Call montero within reach. Care ongoing.
[2025-05-10 03:23] VITALS: BP 109/74
[2025-05-10 05:07] LABS: Hematocrit 37.6 % (39.0-52.0); Hemoglobin 13.5 g/dL (13.0-18.0); Mean Corp Hgb Conc. 35.9 g/dL (33.0-37.0); Mean Corpuscular Volume 88.7 fL (80.0-94.0); Platelet Count 202 10^3/uL (130-400); Red Cell Dist. Width 12.5 % (11.5-14.5)
[2025-05-10 05:31] LABS: Blood Urea Nitrogen 15 mg/dl (9-20); Calcium 9.1 mg/dl (8.4-10.2); Carbon Dioxide 23 mmol/L (22-30); Chloride 110 mmol/L (98-107); Estimated Creatinine Clearance 74 ml/min; Glucose 94 mg/dl (70-99); Potassium 4.1 mmol/L (3.5-5.1); Sodium 138 mmol/L (135-145); eGFR > 60.00
--- NOTE | 2025-05-10 07:33 | W.PN.CARDCBS ---
Addendum entered and electronically signed by Arlene Palafox PA-C 05/10/25 09:55:
[id number]
Original Note:
Today's Communication / Plan
-
New to aspirin and Brilinta, e-scribed Brilinta to [facility] on [facility] yesterday so they could get it in stock by today
CT surgery f/u arranged
D/C to home
Impression / Plan
-
PCP: Dr. Becker
Card: None
Impression:
Admitted with chest pain and pre-hospital STEMI alert 05/08/[address] elevation on ECG 05/08/25
Late presentation of acute IWMI
CAD
75% distal left main, 50% LAD lesion as it arises from the left main and a 60 to 70% mid lesion, 50% mid RCA stenosis and distal RCA 100% occlusion with faint [id number] collaterals by initial cardiac cath 05/08/2025
s/p 2.25 mm Clayton BENNY to the distal RCA on second cardiac cath 05/08/2025
HTN
Untreated hyperlipidemia
NSVT
Echo 05/08/2025: EF 55 to 60%, normal diastolic function, normal RV size and function, mild MR, no or aortic insufficiency
Plan:
-Patient came to the ER more than 12 hours into the onset of chest pain on 05/08/2025 and there was evidence of acute inferior ST elevation on the ECG prompting emergent cardiac cath with results noted above. Patient was pain-free and the plan was
for consultation by CT surgery. Upon return to his room following initial cardiac cath patient had recurrent chest pain and was taken back to the [facility] with successful stenting of the distal RCA. Chest pain again resolved and no recurrence.
-Telemetry reviewed by me on 05/10/2025 and no recurrence of NSVT
-Potassium stable at 4.1 on 05/10/2025 labs as reviewed by me
-On in-depth review of the MAR it looks as though patient was not given his scheduled dose of Toprol XL 25 mg daily on 05/09/2025 because HR of 58 and now all hold parameters removed from this medication by me so that patient was successfully given a
dose on 05/10/2025
-Patient will see CT surgery in the office for outpatient evaluation and consider plans for revascularization of his remaining CAD including the 75% distal left main lesion.
-Troponin was 6.22 on admission and peaked at 41.1. This was a late presentation of an acute inferior wall IL.
-New to aspirin 81 mg daily
-New to ticagrelor 90 mg BID. Appreciate help of CM on checking cost, the generic ticagrelor is affordable, but his pharmacy will need time to get it into stock so electronic prescription sent by me on 05/09/2025 with planned discharge to home on
05/10/2025 and his pharmacy believes they can get it in stock by then.
-Outpatient dose of valsartan 80 mg daily continued
-New to Toprol XL 25 mg daily
-LDL 91 and new to atorvastatin 80 mg daily
-Cardiac rehab not consulted and will hold off until patient has complete revascularization.
-D/C to home 05/10/25
HPI: Patient came to [facility] ER as a prehospital STEMI alert and cardiology consulted to see patient in the ER emergently. I arrived in the ER 15 seconds following patient's arrival from home. Nursing and EMS in the room, conferred with ER attending.
Talked with patient, chest pain started after showering and prior to going to bed last night at about 9 PM. Pain resolved and patient went to bed pain-free. Patient initially awoke pain-free this morning, but while up and moving around pain
recurred and he then had ongoing resting pain prompting the call to 911. Patient was a prehospital STEMI alert with inferior ST elevation. Patient was given aspirin in the ambulance. Upon arrival to the ER he was given heparin bolus and was
loaded with Brilinta. Patient was pain-free during my questioning. No history of CAD. Patient has HTN and takes valsartan 80 mg daily. Patient has been told he has high cholesterol in the past, but was not interested in statin medication. No
known history of diabetes. No family history of CAD.
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
Subjective
Date of Service: May 10, 2025
He feels well, no chest pain
Objective
Labs:
05/10/25 03:29
05/10/25 03:29
Labs
Hgb 13.5 g/dL (13.0-18.0) 05/10/25 03:29
Hct 37.6 % (39.0-52.0) L 05/10/25 03:29
Plt Count 202 10^3/uL (130-400) 05/10/25 03:29
PT 13.6 Sec (11.4-14.6) 05/08/25 11:11
INR 0.99 05/08/25 11:11
APTT Cancelled 05/08/25 17:00
Sodium 138 mmol/L (135-145) 05/10/25 03:29
Potassium 4.1 mmol/L (3.5-5.1) 05/10/25 03:29
BUN 15 mg/dl (9-20) 05/10/25 03:29
Creatinine 1.1 mg/dL (0.7-1.3) 05/10/25 03:29
Glucose 94 mg/dl (70-99) 05/10/25 03:29
Troponins
05/08/25 05/08/25 05/08/25
11:11 15:23 21:21
Troponin I 6.220 H* 34.300 H* D 41.100 H*
05/09/25
03:35
Troponin I 29.300 H* D
Vital Signs and I&O:
Vital Signs
Temp Pulse Resp BP Pulse Ox
98.3 F 59 18 109/74 98
05/10/25 03:15 05/10/25 06:00 05/10/25 03:15 05/10/25 03:23 05/10/25 03:15
Vital Signs
Temp Pulse Resp BP Pulse Ox
98.3 F 59 18 109/74 98
05/10/25 03:15 05/10/25 06:00 05/10/25 03:15 05/10/25 03:23 05/10/25 03:15
Intake & Output
05/08/25 05/09/25 05/10/25 05/11/25
06:59 06:59 06:59 06:59
Output Total 100 / 100
Balance -100 / -100
Physical Exam
Physical Exam
GEN: NAD. AAOx3
LUNGS: RA. No wheeze
CV: SR on tele.
EXT: Right radial without hematoma or ecchymosis.
[2025-05-10 07:52] VITALS: BP 108/70
[2025-05-10] MEDS: BRILINTA 90 MG PO (07:59)
[2025-05-10] MEDS: DIOVAN 80 MG PO (07:59)
[2025-05-10] MEDS: TOPROL XL 25 MG PO (07:59)
[2025-05-10] MEDS: PROTONIX 40 MG PO (07:59)
[2025-05-10] MEDS: LOW STRENGTH ASPIRIN 81 MG PO (07:59)
--- NOTE | 2025-05-10 08:45 | PTCARENOTE ---
Pt ambulating in quach and room, susan well. He is anxious to be discharged today.
--- NOTE | 2025-05-10 09:50 | W.DS.TRANS ---
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
-
Discharge Instructions:
Discharge Diagnosis/Procedures Late presentation acute inferior wall myocardial
infarction, 2.25 mm Atco drug-eluting stent to
the distal right coronary artery 05/08/2025,
residual distal left main, mid right coronary
artery and left anterior descending artery
disease
Diet Low Fat
Activity No strenuous activity
Driving Restrictions As prior to admission
Bathing Restrictions OK to Shower
Instructions:
Stand-Alone Forms: DC Instructions- Cath/EP Lab
Changes to Home Medications: Yes
Discharge Medications:
DC Medications w/original date entered in [facility]
valsartan 80 mg tablet 80 mg PO DAILY Blood Pressure 05/08/25
ticagrelor 90 mg tablet (Brilinta) 90 mg PO BID Heart disease/condition #60 tabs 05/09/25
aspirin 81 mg chewable tablet 81 mg PO DAILY Heart disease/condition #30 tabs 05/10/25
atorvastatin 80 mg tablet 80 mg PO QPM High cholesterol #30 tabs 05/10/25
metoprolol succinate 25 mg tablet,extended release 24 hr 25 mg PO DAILY Heart disease/condition #30 tabs 05/10/25
pantoprazole 40 mg tablet,delayed release 40 mg PO DAILY Gastrointestinal issue #30 tabs 05/10/25
Home Medication Changes
New to Brilinta, aspirin, atorvastatin, Toprol-XL and Protonix
Pending Results: No
--- NOTE | 2025-05-10 09:50 | CM ---
Reviewed chart. Met with Mr. Roger to review discharge plans. Telephone call to [facility] on [address] in [place] to confirm his Ticagrelor is ready for pick-up . His script is ready and his co-pay is $10.00 a month. Prior to admission
he resides with his family in a spilt level home without any steps to enter. He has five steps to get to his bedroom/full bathroom. He has a powder room on the first floor. Prior to admission he was independent with ambulation and adls. He does not
have any DME in the home. He has a prescription plan with [facility] and uses [facility]. Medical work-up in progress The discharge plan is to return home with his family when medically stable.
== END 2025-05-10 10:35 | disposition home or self-care (01) | DRG 322 ==
LOC: IVU 12:26
PROVIDERS: Nurse Practitioner; Physician Assistant Medical; ADMITTING PHYSICIAN Internal Medicine Interventional Cardiology; CONSULT PHYSICIAN Thoracic Surgery (Cardiothoracic Vascular Surgery); EMERGENCY PHYSICIAN Emergency Medicine; FAMILY PHYSICIAN Family Medicine
PROC: B240ZZ3 Ultrasonography of Single Coronary Artery, Intravascular (ICD-10-PCS; 2025-05-08)
PROC: B2151ZZ Fluoroscopy of Left Heart using Low Osmolar Contrast (ICD-10-PCS; 2025-05-08)
PROC: B2111ZZ Fluoroscopy of Multiple Coronary Arteries using Low Osmolar Contrast (ICD-10-PCS; 2025-05-08)
PROC: 027034Z Dilation of Coronary Artery, One Artery with Drug-eluting Intraluminal Device, Percutaneous Approach (ICD-10-PCS; 2025-05-08)
PROC: 4A023N7 Measurement of Cardiac Sampling and Pressure, Left Heart, Percutaneous Approach (ICD-10-PCS; 2025-05-08)
DX: I21.19 ST elevation (STEMI) myocardial infarction involving other coronary artery of inferior wall (principal); I47.20 Ventricular tachycardia, unspecified; I25.10 Atherosclerotic heart disease of native coronary artery without angina pectoris; I10 Essential (primary) hypertension; E78.00 Pure hypercholesterolemia, unspecified; Z87.891 Personal history of nicotine dependence
CPT/HCPCS: 71046; 80048; 80053; 80061; 81003; 81015; 83036; 83735; 84484; 85025; 85027; 85347; 85610; 85730; 92978; 93005; 93306; 93458; 93880; 93923; 93930; 96374; 99152; 99153; 99285; C1725; C1753; C1760; C1769; C1874; C1894; C9600; Q9967

== ENCOUNTER → 2025-06-05 08:09 | Outpatient (REF) | payer OTHER, SELFPAY | LOC: HWRAD 08:09 | PROVIDERS: ATTENDING PHYSICIAN Thoracic Surgery (Cardiothoracic Vascular Surgery); FAMILY PHYSICIAN Family Medicine | DX: Z01.810 Encounter for preprocedural cardiovascular examination (principal) | CPT/HCPCS: 71250 ==

== ENCOUNTER 2025-06-25 05:02 | Inpatient (IN) | payer OTHER, SELFPAY ==
[2025-06-12 08:25] VITALS: BMI 25.5
[2025-06-12 09:10] LABS: Urine Character Clear (Clear)
[2025-06-12 09:12] LABS: Hematocrit 39.4 % (39.0-52.0); Hemoglobin 13.6 g/dL (13.0-18.0); Mean Corp Hgb Conc. 34.5 g/dL (33.0-37.0); Mean Corpuscular Volume 90.2 fL (80.0-94.0); Nucleated Red Blood Cells % 0 % (-); Platelet Count 247 10^3/uL (130-400); Red Cell Dist. Width 12.1 % (11.5-14.5)
[2025-06-12 09:21] LABS: INR 0.92; PT 12.6 Sec (11.4-14.6)
[2025-06-12 09:30] LABS: ALT (SGPT) 113 U/L (0-50); AST (SGOT) 40 U/L (17-59); Albumin 4.6 g/dl (3.5-5.0); Alkaline Phosphatase 103 U/L (38-126); Blood Urea Nitrogen 24 mg/dl (9-20); Calcium 10.0 mg/dl (8.4-10.2); Carbon Dioxide 26 mmol/L (22-30); Chloride 106 mmol/L (98-107); Estimated Creatinine Clearance 76 ml/min; Glucose 102 mg/dl (70-99); Potassium 4.6 mmol/L (3.5-5.1); Sodium 140 mmol/L (135-145); Total Protein 7.3 g/dl (6.3-8.2); eGFR > 60.00
--- NOTE | 2025-06-12 09:33 | CM ---
Chart reviewed. Met with the patient in PAT. Reviewed preoperative and postoperative instructions and restrictions, along with showering guidelines. Gave patient 2 soaps. Patient is agreeable to a visit by CT Transitional RN. Patient is
independent of ADLS, lives with his girlfriend in a split level, 0 ROBERTO, 0 DME. Plan is for the patient to return home with CT Transitional RN.
[2025-06-12 09:42] LABS: Glycohemoglobin (HgbA1c) 5.4 % (4.0-5.6)
[2025-06-25] VITALS (26 sets, daily range): BP systolic 80–174; BP diastolic 52–101; BMI 24.8
--- NOTE | 2025-06-25 05:43 | W.PN.UPDATE ---
Update Note
Progress Note Update
Pt's AM dose of Lopressor contraindicated and not given. HR 55 bpm
--- NOTE | 2025-06-25 05:53 | PTCARENOTE ---
Pt admitted to room 2261. Pt confirmed 2 showers at home and NPO status. Pt changed into gown. Weight and VS obtained. Pt clipped and wipes w/ CHG wipes. ABO drawn and sent. Admission questions completed. Home medications confirmed. Pt stopped their
Brilinta on 06/20/2025 and their valsartan on 06/22/2025. Pt oriented to room. Heart pillow introduced. IS practiced. Metoprolol held for low heart rate per CTPA. Pt resting in bed. Call montero within reach.
--- NOTE | 2025-06-25 06:00 | W.CVOR.SURPR ---
CVOR Surgeon Immed Pre Op
-
I have examined this patient prior to performance of the scheduled procedure.
The patient's condition is unchanged from the time of the dictated/written History and
Physical and the patient is able to undergo the scheduled procedure.
[2025-06-25] MEDS: BACTROBAN 2% OINTMENT 1 APPLIC NASAL ×2 (06:04→20:28)
[2025-06-25] MEDS: PROTONIX 40 MG PO (06:04)
[2025-06-25] MEDS: MAGNESIUM OXIDE 400 MG PO (06:04)
[2025-06-25 07:20] LABS: ACT+ - POC 120 Seconds (82-134)
[2025-06-25 07:28] LABS: Urine Character Clear (Clear)
[2025-06-25 07:49] LABS: Urine Red Blood Cell 0-2 /HPF (0-2); Urine White Cell 0-2 /HPF (0-5)
--- NOTE | 2025-06-25 08:22 | CON.INTV ---
Consultation
Consultation Request
Date/Time Consultation Requested: 06/25/2025
Date/Time Consultation Performed: 06/25/2025
Medical History
-
Chief Complaint: Chest pain
History of Present Illness:
Patient is a 69-year-old male patient who presented in 04/2025 with chest pain and was noted to have myocardial infarction. Patient had a coronary angiogram performed which was suggestive of multivessel coronary artery disease and CT surgery
evaluation was pursued. Patient during hospital stay developed another episode of chest pain and was taken back to the [facility] and had a stent placed in the distal RCA. Decision was made to proceed with a delayed coronary artery bypass graft. On
06/25, patient was admitted to the hospital for elective coronary artery bypass graft. Postprocedure, patient to be admitted to ICU, delivery and mail sorter consultation requested for further input.
Pertinent negatives: Denies CVA/TIA, dysphagia, hepatitis, bowel/bladder issues, DVT/PE, chest radiation, vein stripping
Past Medical History
Past Medical History: HTN, Hypercholesterolemia (untreated) and Other (left zygomatic arch fracture; skin cancer R neck (removed))
Past Surgical History
Past Surgical History: Tonsilectomy and Other (left shoulder scope)
Family History
Mother: N/A
Father: N/A
Social History
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
Allergies / Home Medications
Allergies
Allergy/AdvReac Type Severity Reaction Status Date / Time
No Known Allergies Allergy Verified 06/07/25 12:26
Home Medications
�Medication �Instructions �Recorded �Confirmed �Last Taken �Type
valsartan 80 mg tablet 80 mg PO DAILY Blood Pressure 05/08/25 06/25/25 06/22/25 History
ticagrelor 90 mg tablet (Brilinta) 90 mg PO BID Heart 05/09/25 06/25/25 06/20/25 15:00 Rx
disease/condition #60 tabs
aspirin 81 mg chewable tablet 81 mg PO DAILY Heart 05/10/25 06/25/25 06/24/25 Rx
disease/condition #30 tabs
atorvastatin 80 mg tablet 80 mg PO QPM High cholesterol #30 05/10/25 06/25/25 06/23/25 20:00 Rx
tabs
metoprolol succinate 25 mg 25 mg PO DAILY Heart 05/10/25 06/25/25 06/23/25 Rx
tablet,extended release 24 hr disease/condition #30 tabs
pantoprazole 40 mg tablet,delayed 40 mg PO DAILY Gastrointestinal 05/10/25 06/25/25 06/23/25 Rx
release issue #30 tabs
Review of Systems
-
Unable to Obtain full review of systems at this time due to: Patient Intubation
Vitals / Labs / Diagnostic Testing
Vital Signs
Temp Pulse Resp BP Pulse Ox
97.6 F 61 16 142/94 98
06/25/25 05:50 06/25/25 05:50 06/25/25 05:50 06/25/25 05:11 06/25/25 05:50
Lab Data
06/12/25 08:33
06/12/25 08:33
Diagnostic Testing:
Physical Exam
-
HEENT: Normocephalic
Cardiovascular: S1/S2
Respiratory: Clear
GI: Soft and Non Distended
Neurology: Other (Drowzy, slowly waking up )
Skin: Warm
General: Comfortable
Assessment
-
69-year-old patient with history of myocardial infarction in 04/2025, s/p PCI 04/2025, now s/p coronary artery bypass graft and ELAA POD # 0
On ASA, Plavix, Metoprolol and Lipitor.
Titrate off pressors per protocol. Currently MAP 83, CVP of 12, Levophed infusing at 3.
JEANETTE reviewed with normal function, 55% with grade 1 diastolic dysfunction
Management of chest tubes per primary service
Intubated, off sedation now.
Pain control
RASS goal of 0 to -1
Intubated for procedure, anticipate SBT in coming hours
Current vent settings: SIMV, 550/16/40%/5, with pressure support of 5.
AB.38/40/159
CXR with no obvious opacities/infiltrates, ETT in good position, lines/tubes in place
Extubate per protocol
Maintain supplement oxygen as needed
No prior history of pulmonary disease
Can add nebulizers if needed
Aspiration precautions
Encouraged incentive spirometry, OOB/ambulation/early mobility
Advance diet as tolerated following extubation
GI prophylaxis: Protonix
Monitor critical I/O's
Burton/chest tube output
Hb/platelets postoperatively, pending
Trend CBC for now
Can transfuse if indicated for Hb <7, plt <50 in surgical patients
DVT prophylaxis including SCDs
Insulin protocol initiated and ongoing
Transition to SQ/off as indicated per team
Other medical diagnoses:
- Calcified granulomas, pulmonary
- HTN
- HLD
- NSVT
Critical Care time 62 mins -- The patient is admitted for acute critical illness for the treatment of vital organ failure and/or prevention of further life-threatening conditions. Total care includes time spent in review of history, physical exam,
medications, hemodynamic/ventilator parameters, laboratory data, imaging and discussion with house staff, pharmacy, respiratory therapy, music adapter, and nursing
Data:
Chest CT 05/2025: 1. No acute findings within the chest. Calcified granulomas.
2. Normal caliber, minimally calcified thoracic aorta.
3. Moderate to severe coronary artery calcifications.
4. Additional findings above.
[facility] 04/2025: 1. Successful stenting of the distal right coronary artery into the PDA with placement of a 2.25 x 26 mm Kris stent. The distal portion of the stent was postdilated with a 2.25 mm noncompliant balloon while the proximal midportion of
the stent was postdilated with a 3.25 mm noncompliant balloon between 20 and 22 ysabel.
1. Late presentation of inferior wall myocardial infarction with symptoms present for over 12 hours. He became chest pain-free en route to the hospital and has remained chest pain-free prior to and throughout the procedure. The distal right
coronary artery was found to be 100% occluded and his troponin measured 6.22 ng/mL on admission. His late presentation of the inferior wall myocardial infarction will be treated medically
2. Residual coronary disease involving the distal left main, proximal and mid LAD, and ostial circumflex would likely benefit from coronary artery bypass surgery
3. Low normal LVEF
ECHO 04/2025: 1. Left ventricle: Normal size and function with an estimated ejection
fraction of 55-60%. Normal diastolic function
2. Right ventricle: Normal
3. Atria: Normal
4. Mitral valve: Mild mitral regurgitation
5. Aortic valve: Mildly thickened. No aortic stenosis or aortic insufficiency
6. Tricuspid valve: Trace tricuspid regurgitation with estimated pulmonary
artery systolic pressures of 25-30 mmHg
7. No prior studies for comparison
[2025-06-25 09:11] LABS: ACT+ - POC 715 Seconds (82-134)
[2025-06-25 09:29] LABS: B.E. - POC -0.6 mmol/L; Glucose - POC 104 mg/dl (70-99); HCO3 - POC 24 mmol/L (21-28); Hematocrit - POC 33 % PCV (42-52); Hemodilution- POC No; Hemoglobin Calculated - POC 11.2; Ionized Calcium - POC 1.26 mmol/L (1.15-1.33); Lactate - POC 1.07 mmol/L (0.36-0.75); O2 Saturation %Calculated-POC 99.2 % (94-98); PCO2 - POC 38 mmHg (35-48); PO2 - POC 138 mmHg (83-108); Potassium - POC 3.9 mmol/L (3.5-5.1); Sodium - POC 140 mmol/L (136-145); Specimen Type - POC Arterial; pH - POC 7.41 (7.35-7.45)
[2025-06-25 09:41] LABS: ACT+ - POC 609 Seconds (82-134)
[2025-06-25 10:01] LABS: ACT+ - POC 473 Seconds (82-134)
[2025-06-25 10:14] LABS: B.E. - POC 0.3 mmol/L; Glucose - POC 138 mg/dl (70-99); HCO3 - POC 28 mmol/L (21-28); Hematocrit - POC 29 % PCV (42-52); Hemodilution- POC Yes; Hemoglobin Calculated - POC 9.8; Ionized Calcium - POC 1.09 mmol/L (1.15-1.33); Lactate - POC < 0.30 mmol/L (0.36-0.75); O2 Saturation %Calculated-POC 100.0 % (94-98); PCO2 - POC 60 mmHg (35-48); PO2 - POC 421 mmHg (83-108); POC Comment CPB; Potassium - POC 5.2 mmol/L (3.5-5.1); Sodium - POC 139 mmol/L (136-145); Specimen Type - POC Arterial; pH - POC 7.28 (7.35-7.45)
[2025-06-25 10:17] LABS: ACT+ - POC 661 Seconds (82-134)
[2025-06-25 10:25] LABS: B.E. - POC -0.7 mmol/L; Glucose - POC 219 mg/dl (70-99); HCO3 - POC 27 mmol/L (21-28); Hematocrit - POC 29 % PCV (42-52); Hemodilution- POC Yes; Hemoglobin Calculated - POC 10.0; Ionized Calcium - POC 1.11 mmol/L (1.15-1.33); Lactate - POC 0.93 mmol/L (0.36-0.75); O2 Saturation %Calculated-POC 99.8 % (94-98); PCO2 - POC 55 mmHg (35-48); PO2 - POC 272 mmHg (83-108); POC Comment CPB; Potassium - POC 5.0 mmol/L (3.5-5.1); Sodium - POC 143 mmol/L (136-145); Specimen Type - POC Arterial; pH - POC 7.29 (7.35-7.45)
[2025-06-25 10:36] LABS: ACT+ - POC 544 Seconds (82-134)
[2025-06-25 10:46] LABS: B.E. - POC -0.3 mmol/L; Glucose - POC 161 mg/dl (70-99); HCO3 - POC 26 mmol/L (21-28); Hematocrit - POC 28 % PCV (42-52); Hemodilution- POC Yes; Hemoglobin Calculated - POC 9.6; Ionized Calcium - POC 1.10 mmol/L (1.15-1.33); Lactate - POC 1.36 mmol/L (0.36-0.75); O2 Saturation %Calculated-POC 99.9 % (94-98); PCO2 - POC 47 mmHg (35-48); PO2 - POC 312 mmHg (83-108); POC Comment CPB; Potassium - POC 3.8 mmol/L (3.5-5.1); Sodium - POC 142 mmol/L (136-145); Specimen Type - POC Arterial; pH - POC 7.35 (7.35-7.45)
[2025-06-25 10:58] LABS: ACT+ - POC 545 Seconds (82-134)
--- NOTE | 2025-06-25 11:11 | CM ---
pt in OR today, cm to follow.
[2025-06-25 11:23] LABS: B.E. - POC -0.6 mmol/L; Glucose - POC 121 mg/dl (70-99); HCO3 - POC 24 mmol/L (21-28); Hematocrit - POC 29 % PCV (42-52); Hemodilution- POC Yes; Hemoglobin Calculated - POC 9.9; Ionized Calcium - POC 1.09 mmol/L (1.15-1.33); Lactate - POC 2.42 mmol/L (0.36-0.75); O2 Saturation %Calculated-POC 99.9 % (94-98); PCO2 - POC 41 mmHg (35-48); PO2 - POC 328 mmHg (83-108); POC Comment WARM; Potassium - POC 3.9 mmol/L (3.5-5.1); Sodium - POC 146 mmol/L (136-145); Specimen Type - POC Arterial; pH - POC 7.39 (7.35-7.45)
[2025-06-25 11:30] LABS: ACT+ - POC 129 Seconds (82-134)
--- NOTE | 2025-06-25 11:36 | W.IMMPOSTOP ---
Addendum entered and electronically signed by Kostas Phan MD 06/25/25 13:21:
[id number]
Original Note:
Surgical Immed Post Op Note
-
CARDIAC SURGERY OPERATIVE NOTE:
Preoperative Dx:
CAD s/p recent iSTEMI s/p PCI/stent to RCA
NSVT
HTN
HLD
Tonsillitis s/p tonsilectomy
Vertigo
Zygomatic arch fracture
Postoperative Dx:
Same
Procedures:
1) Median sternotomy
2) Takedown of MAU (narrow pedicle)
3) Endoscopic harvest/prep of RLE GSV
4) ELAA (40mm AtriClip)
5) CABG x 3 (MAU to LAD, GSV to medial D1 branch, GSV to lateral D1 branch (RI))
Surgeon:
Kostas Phan M.D.
Assistants:
Reba Israel-Bethel; mate first throughout; sternotomy closure
Justine Nichols P.A.-C.; endoscopic harvest/prep of RLE GSV; sternotomy closure
Anesthesia:
Elder Saldivar M.D. and Dyana Bishop, C.R.N.A.
Perfusion:
Norma Espinosa, C.C.P.; XC: 82min, CPB: 108min
Findings:
MAU was healthy conduit w/ very brisk blood flow; ELD 2.5mm
GSV was healthy conduit w/ ELD 3.5mm
LAD was visible on the epicardial surface, normal ng at midpoint anastomosis, ELD 3.25mm
D1 (medial) was visible on the epicardial surface, normal ng at midpoint anastomosis, ELD 3.50mm
D1 (lateral/RI) was initially visible on the epicardial surface but subsequently took an intramyocardial course under approximately 3mm of myocardium. Intramyocardial segment cleared, normal ng, ELD 3.50mm
SHIV w/ 'windsock' morphology, successfully excluded at base w/ 40mm AtriClip - confirmed w/ JEANETTE postoperative
Post-JEANETTE: Normal biventricular function, no significant VHD (mild MR)
Implants:
AtriCure AtriClip 40mm ([id number]); LOT: [id number]
Sternal wires x 7
Sternal 'X' plate w/ 8 - 14mm screws
Sternal 'Square' plate w/ 4 - 12mm screws
Transfusions:
None
Complications:
None
Condition:
64 sinus (0.2/0.1); 101/57, CVP 15, 99%
GTTS: levophed 4, precedex 0.5
Stable/guarded to CVICU
[2025-06-25] MEDS: NEURONTIN PO ×2 (11:57→15:09)
--- NOTE | 2025-06-25 12:30 | PTCARENOTE ---
Pt received from CVOR. Pt intubated and sedated on precedex gtt. RAAS -5. PERRLA 4mm brisk. Unresponsive. POX 100%. 8.0 ETT 23cm at the lip. SIMV 40% 16 500 5, not breathing over the vent. B/l anterior breath sounds audible, no adventitious sounds.
Mediastinal chest tubes x2 y-sited to 1 atrium to -20cm suction draining red fluid. Right and left pleural chest tubes y-sited to 1 atrium to -20cm suction with no drainage at this time. No air leaks, tidaling, crepitus noted. NSR with prolonged QT
with rates in the 60s. Pt received on no vasopressors, titrating Levo and Cardene to maintain SBP 90-[address] PA. CVP 5, 250 LR given. Cuff and Catherine pressures correlating. Bilateral radial and DP pulses palpable. Abdomen soft, nontender.
Hypoactive BS. Burton catheter intact draining clear yellow urine. Sternal incision covered with antibacterial dressing, CDI. CT dressing CDI. Right groin puncture site approximated with skin glue, MUSSEL FARMER. Right SVG harvest site approximated with skin
glue, RONEY CDI. Right IJ cordis and slic. Left radial catherine intact with appropriate waveform. CVP and catherine flushed, leveled, and zeroed. Right forearm 20g PIV intact. See MAR for medication administration. See worklist for complete nursing
assessment. Post-op labs, EKG, and CXR completed.
[2025-06-25] MEDS: LR 250 ML IV ×4 (12:35→17:45)
[2025-06-25 12:39] LABS: Glucose - Point of Care 94 mg/dl (70-99)
--- NOTE | 2025-06-25 12:40 | W.PN.UPDATE ---
Update Note
Progress Note Update
69 year old male was electively admitted on 06/25/25 for CABG. Patient had recent admission on 05/08/2025 for inferior wall STEMI. Patient underwent stent x 2 to culprit RCA vessel and was discharged home with planned admission today for CABG
IV fluids: 2200
U.O.:� 800
Blood:� none
Wires:� none
Drips: Precedex
�
NEURO: sedated, pupils +2mm B/L
RESP: #8OT @23cm> 500/40%/16/5. Lungs clear B/L. 2 mediastinal (0cc on arrival) and R/L pleural (0cc on arrival) chest tubes to -20cm suction. No air leak
CV: RRR +S1, S2, no S3, no�rub, no murmur. Aquacell to median sternotomy. RIJ w/Slik intact
ABD: round, soft, no BS
EXT: no edema, +2/4 DP pulses B/L, no femoral bruit, RLE RONEY wrap intact; left radial A-line intact
: Burton with clear yellow urine
�
A/P: POD #0 s/p CABG x 3 (MAU to LAD, GSV to medial D1 branch, GSV to lateral D1 branch (RI)) and ELAA (40mm AtriClip)
JEANETTE: EF�55-60%
- wean and extubate
# CAD
# recent STEMI>BENNY-RCA (05/08/25)
- will require statin, beta kal, ASA + Plavix in initial postop period, may transition to Brilinta on DC at cardiology preference
- on Valsartan as home med
- insulin infusion x 24 hours as not a diabetic
- AFib prophylaxis with Amiodarone
- Protonix for GI prophylaxis
- wean Levophed to maintain SBP >90
�
# acute surgical blood loss anemia-expected
- Hb 10.5 post-op>trend CBC
�
[2025-06-25 12:50] LABS: B.E. -1.3 mmol/L; HCO3 23.7 mmol/L (21-28); O2 Saturation % 99.7 % (94-98); PCO2 40 mmHg (35-48); PO2 159 mmHg (83-108); Potassium 3.7 mMOL/L (3.5-5.1); Sodium 139 mMOL/L (136-145)
[2025-06-25 12:51] LABS: O2 Therapy VENT
[2025-06-25 13:01] LABS: INR 1.36; PT 17.0 Sec (11.4-14.6)
[2025-06-25 13:02] LABS: APTT 27.5 Sec (23.4-35.0)
[2025-06-25] MEDS: NSS 500 IV (13:02)
[2025-06-25] MEDS: ANCEF 10 IV ×2 (13:02)
[2025-06-25 13:03] LABS: Hematocrit 29.9 % (39.0-52.0); Hemoglobin 10.5 g/dL (13.0-18.0); Platelet Count 191 10^3/uL (130-400)
[2025-06-25] MEDS: KCL 50 IV ×2 (13:03→14:04)
[2025-06-25] MEDS: TYLENOL PO ×2 (13:04→20:30)
[2025-06-25 13:14] LABS: Blood Urea Nitrogen 17 mg/dl (9-20); Estimated Creatinine Clearance 93 ml/min; Glucose 85 mg/dl (70-99); Magnesium 2.5 mg/dl (1.6-2.3)
[2025-06-25 13:54] LABS: Glucose - Point of Care 143 mg/dl (70-99)
[2025-06-25 14:03] LABS: B.E. - POC -1.2 mmol/L; Glucose - POC 76 mg/dl (70-99); HCO3 - POC 24 mmol/L (21-28); Hematocrit - POC 27 % PCV (42-52); Hemodilution- POC Yes; Hemoglobin Calculated - POC 9.3; Ionized Calcium - POC 1.21 mmol/L (1.15-1.33); Lactate - POC 2.73 mmol/L (0.36-0.75); O2 Saturation %Calculated-POC 99.5 % (94-98); PCO2 - POC 43 mmHg (35-48); PO2 - POC 176 mmHg (83-108); POC Comment POST; Potassium - POC 3.5 mmol/L (3.5-5.1); Sodium - POC 144 mmol/L (136-145); Specimen Type - POC Arterial; pH - POC 7.36 (7.35-7.45)
--- NOTE | 2025-06-25 14:15 | PTCARENOTE ---
Pt awakens to voice. Able to shake his head yes/no appropriately. Squeezes b/l hands and wiggles b/l toes on command. RT at bedside to attempt a cpap trial, pt apneic x2, placed back on SIMV settings. Pt bathed with CHG wipes. Turned from side to
side without significant dumps from chest tubes. Pt tolerated.
[2025-06-25 15:02] LABS: Glucose - Point of Care 139 mg/dl (70-99)
[2025-06-25] MEDS: PACERONE PO (15:09)
--- NOTE | 2025-06-25 15:20 | PTCARENOTE ---
RT at bedside. Pt appears more awake with more breathing over the ventilator. RT placed pt on cpap settings, pt was apneic three times and placed back on SIMV settings. POX 100%.
[2025-06-25 16:00] LABS: Glucose - Point of Care 133 mg/dl (70-99)
--- NOTE | 2025-06-25 16:00 | PTCARENOTE ---
Pt reassessed. Remains intubated. Occasionally wakes to voice, able to shake head yes/no appropriately. Moves hands and wiggle toes. Remains SR with prolonged QT with rates in the 60s. BP supported with levo gtt @3. POX 100%. Currently on cpap trial
and tolerating. CT output WNL. UO adequate.
[2025-06-25 16:34] LABS: B.E. -2.3 mmol/L; HCO3 22.5 mmol/L (21-28); O2 Saturation % 100.0 % (94-98); PCO2 38 mmHg (35-48); PO2 181 mmHg (83-108); Potassium 4.7 mMOL/L (3.5-5.1)
--- NOTE | 2025-06-25 16:39 | PTCARENOTE ---
Cpap gas reviewed, CT DENTAL PATIENT COORDINATOR notified, as per orders, ok to extubate. RT at bedside and pt extubated to 6L NC. POX 100%. Pt able to state name & . Denies nausea. Reports 9/10 sternal pain. Due to sleepiness, CT DENTAL PATIENT COORDINATOR notified and orders for toradol
placed for pain. Pt's significant other notified of extubation and she is at bedside.
[2025-06-25 16:50] LABS: Hematocrit 30.6 % (39.0-52.0); Hemoglobin 10.9 g/dL (13.0-18.0); Platelet Count 239 10^3/uL (130-400)
[2025-06-25] MEDS: TORADOL 15 MG IV (16:52)
--- NOTE | 2025-06-25 17:01 | W.PN.CARDCBS ---
Addendum entered and electronically signed by Keena Ochoa DO 06/25/25 18:24:
I saw and examined the patient.
The Time Recorder's note was reviewed and I agree with the note.
Comment: Patient was seen and examined. Operative course reviewed. Patient is on nasal cannula O2 with no specific complaints postop
Extubated on nasal cannula O2
Regular positive S1-S2 no murmurs. Aquacel to median sternotomy
Decreased breath sounds with postoperative chest tubes.
No edema. Left radial A-line
Burton with yellow urine
Plan:
Elective admission for CABG today with recent inferior wall STEMI 05/08/2025
- Postop supportive care per CT surgical team
- Levophed running at 2, wean as able
- Postop EKG sinus rhythm with inferior infarct but no acute ischemic changes
- Eventual resume Plavix for recent STEMI and stent.
- Postoperative amiodarone for A-fib prophylaxis
Original Note:
Today's Communication / Plan
-
HD stable postop, will follow
Impression / Plan
-
PCP: Dr. Becker
Card: None
Impression:
Admitted for planned CABG 06/25/25
Recent admission for STEMI and RCA PCI 05/08/25 until 05/10/25
CAD
s/p late presentation IWMI and MV CAD by initial cardiac cath followed by second cardiac cath and PCI with 2.25 mm [place] BENNY to the distal RCA 05/08/2025
s/p MAU to LAD, GSV to medial D1 branch, GSV to Diag-1 06/25/25
HTN
Hyperlipidemia
NSVT
Echo 05/08/2025: EF 55 to 60%, normal diastolic function, normal RV size and function, mild MR, no or aortic insufficiency
Plan:
-Patient presented to the ER on 05/10/2025 as a prehospital STEMI alert and was taken urgently to the [facility] where he was found to have MV CAD that was felt to be a late presentation IWMI. Following consultation with CT surgery and because of
recurrent pain the patient return to the [facility] for RCA PCI. The patient returns now for planned CABG with details outlined above.
-Levophed running at 2
-Labs reviewed by me and Hgb is stable postop
-Outpatient dose of Toprol-XL 25 mg daily has transition to Lopressor 12.5 mg twice daily while postop
-New to amiodarone 200 mg 3 times daily postop
-Outpatient dose of aspirin 81 mg daily has been continued
-Outpatient dose of Plavix 75 mg daily is set to resume on 06/26/2025
-Eventually resume outpatient dose of valsartan 80 mg daily
-LDL was 91 at time of [place] and patient started on atorvastatin 80 mg daily
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
Subjective
Date of Service: June 25, 2025
Feels well, no chest pain
Objective
Labs:
06/25/25 16:26
06/25/25 12:36
Labs
Hgb 10.9 g/dL (13.0-18.0) L 06/25/25 16:26
Hct 30.6 % (39.0-52.0) L 06/25/25 16:26
Plt Count 239 10^3/uL (130-400) D 06/25/25 16:26
PT 17.0 Sec (11.4-14.6) H 06/25/25 12:36
INR 1.36 06/25/25 12:36
APTT 27.5 Sec (23.4-35.0) 06/25/25 12:36
Sodium 140 mmol/L (135-145) 06/12/25 08:33
Potassium 4.6 mmol/L (3.5-5.1) 06/12/25 08:33
BUN 17 mg/dl (9-20) 06/25/25 12:36
Creatinine 0.9 mg/dL (0.7-1.3) 06/25/25 12:36
Glucose 85 mg/dl (70-99) 06/25/25 12:36
Vital Signs and I&O:
Vital Signs
Temp Pulse Resp BP Pulse Ox
97.8 F 61 10 106/63 100
06/25/25 16:00 06/25/25 16:00 06/25/25 16:00 06/25/25 16:00 06/25/25 16:00
Vital Signs
Temp Pulse Resp BP Pulse Ox
97.8 F 61 10 106/63 100
06/25/25 16:00 06/25/25 16:00 06/25/25 16:00 06/25/25 16:00 06/25/25 16:00
Intake & Output
06/23/25 06/24/25 06/25/25 06/26/25
06:59 06:59 06:59 06:59
Intake Total 1019.6 / 1019.6
Output Total 560 / 560
Balance 459.6 / 459.6
Physical Exam
Physical Exam
GEN: NAD. AAOx3
LUNGS: 6 L NC. No wheeze
CV: SR on tele. No murmur
EXT: No edema B/L
[2025-06-25 17:05] LABS: Glucose - Point of Care 133 mg/dl (70-99)
[2025-06-25] MEDS: CALCIUM GLUCONATE 100 IV (17:06)
[2025-06-25] MEDS: LIPITOR 80 MG PO (17:45)
[2025-06-25] MEDS: LOW STRENGTH ASPIRIN 81 MG PO (17:45)
[2025-06-25] MEDS: ROXICODONE 5 MG PO (17:45)
[2025-06-25 18:58] LABS: Glucose - Point of Care 114 mg/dl (70-99)
[2025-06-25] MEDS: DILAUDID 0.5 MG IV (20:01)
[2025-06-25] MEDS: OFIRMEV 100 IV (20:04)
[2025-06-25] MEDS: ANCEF 5 IV (20:04)
--- NOTE | 2025-06-25 20:04 | PTCARENOTE ---
Assumed care of patient at 1900, Patient s/P CABG, Alert and oriented, PERRLA, TODD,good bilateral strength pain currently controlled with PRN medication. Has CODIS , left radial art line and Right FA 20, Normal sinus rhythm 64-62, BP 111/60 on Levo
@ 2, + Pulses, Lung sounds clear and diminished at bases. CT X4 draining clear red. Dressing CDI, encouraged IS usage:1000. Bowel sounds hypoactive, belly soft non tender, has summers in place, draing clear yellow urine. Surgival sites CDI, Right
grion puncture, R SV site aced wrapped. See workflow for more deailed assessment data.
[2025-06-25] MEDS: SODIUM BICARBONATE 50 MEQ IV (20:09)
[2025-06-25] MEDS: CALCIUM GLUCONATE 130 MG IV (20:19)
--- NOTE | 2025-06-25 20:30 | PTCARENOTE ---
patient stated pain 7-8/10, in sternum. IV Ofirmev given. Patient also recieve 50 of Bicarb and 3000mg of calcum Glucate per order
[2025-06-25 21:17] LABS: Glucose - Point of Care 123 mg/dl (70-99)
[2025-06-25] MEDS: SENOKOT PO (22:21)
[2025-06-25] MEDS: NEURONTIN 100 MG PO (22:23)
[2025-06-25 23:12] LABS: Glucose - Point of Care 89 mg/dl (70-99)
[2025-06-26] VITALS (25 sets, daily range): BP systolic 80–126; BP diastolic 56–98; PULSE 78–80; O2SAT 99; BMI 25.7
[2025-06-26] MEDS: ROXICODONE 5 MG PO ×5 (00:03→19:27)
[2025-06-26] MEDS: FLEXERIL 5 MG PO ×3 (00:03→19:12)
--- NOTE | 2025-06-26 00:30 | PTCARENOTE ---
reassessment of patient. Levophed weaned of at 2100, remains on Insulin gtt, Vitals stable, pain is 8/10 flexeril 5 mg and Roxicodone 5 mg given.
[2025-06-26 01:01] LABS: Glucose - Point of Care 124 mg/dl (70-99)
[2025-06-26 03:03] LABS: Glucose - Point of Care 80 mg/dl (70-99)
[2025-06-26 04:03] LABS: Hematocrit 27.4 % (39.0-52.0); Hemoglobin 9.5 g/dL (13.0-18.0); Mean Corp Hgb Conc. 34.7 g/dL (33.0-37.0); Mean Corpuscular Volume 89.8 fL (80.0-94.0); Platelet Count 189 10^3/uL (130-400); Red Cell Dist. Width 12.6 % (11.5-14.5)
[2025-06-26] MEDS: ANCEF 5 IV ×2 (04:08→12:01)
--- NOTE | 2025-06-26 04:14 | W.PN.CT ---
Addendum entered and electronically signed by Kostas Phan MD 06/26/25 06:43:
I saw and examined the patient.
The PA's note was reviewed and I agree with the note.
Comment:
Mr. Freddie Echevarria is doing well this morning. He is hemodynamically stable. There were no overnight events.
He relates fairly significant pain complaints this morning. His creatinine is 0.9. I will administer an additional dose of Toradol
We discussed the importance of getting out of bed and working with his incentive spirometry
- Maintain chest tube today
- DC Summers once more ambulatory
- Plan DC Cordis on postoperative day #3
- Continue aspirin/Plavix, potential beta-kal later today
Original Note:
Today's Communication / Plan
-
Plan:
-No major issues overnight. Hemodynamically and neurologically intact
-Successfully extubated yesterday 06/25/25 @ 1640
-Wean off Levophed overnight, remains on insulin gtt protocol
-No swan, MVO2 off cordis/SLIC 73%, u/o since OR 1185 mL
-Monitor chest tube output: 2meds 100/210, R/L pleurals 105/155
-Cont. current meds (ASA, Plavix, Lipitor, Protonix, Amiodarone). Held Amiodarone last night d/t bradycardia, hold AM dose of BB d/t postop hypotension
-D/C'd A-line and SLIC this AM @ 0430
-Will D/C summers catheter @ 0600
-Tele phase when off insulin gtt today
-Maintain cordis for phlebotomy and meds
-No temporary PW
-Encourage use of IS
-Wean O2 as tolerated
-OOB into chair/Ambulate
Assessment / Plan
-
Assessment:
S/P Median sternotomy/CABG x 3 (MAU to LAD, GSV to medial D1 branch, GSV to lateral D1 branch {RI})/Endoscopic harvest/prep of RLE GSV/ELAA (40mm AtriClip), by Dr. Phan, 06/25/25, pod#1
-Multivessel CAD/ 75% distal LM disease
-Recent IWMI S/P PCI with BENNY to distal RCA, 05/08/25
-Brilinta washout
-Mild MR
-LVEF 55% per intraop JEANETTE
-NSVT
-HTN
-HLD
-GERD
-Vertigo
-Anemia
-Zygomatic arch fracture
-Right neck skin ca S/P excision
-S/P left shoulder arthroscopy
-Tonsillitis s/p tonsillectomy
-Acute postop blood loss anemia on preop Anemia (stable without transfusion)
-Acute postop atelectasis
-Acute postop hypovolemia with subsequent hypervolemia
Discussed patient care with: Cardiology, Nursing, Respiratory Therapy, Pharmacy and Care Team
Subjective
-
Date of Service: June 26, 2025
Pt c/o incisional pain, otherwise feels well
Objective Data
-
Lab Results
06/26/25 03:25
PT 17.0 Sec (11.4-14.6) H 06/25/25 12:36
INR 1.36 06/25/25 12:36
APTT 27.5 Sec (23.4-35.0) 06/25/25 12:36
Vital Signs
Vital Signs
Temp Pulse Resp BP Pulse Ox
99 F 64 10 94/62 98
06/26/25 03:00 06/26/25 03:05 06/26/25 03:05 06/26/25 03:00 06/26/25 03:05
CT Intake/Output/Weight
06/25/25 06/25/25 06/26/25
06:59 18:59 06:59
Intake Total 1529.8 / 2057.55 527.75 /
Output Total 755 / 1518 763 / 1518
Balance 774.8 / 539.55 -235.25 / .
SaO2: 98 (2L)
Physical Exam
-
General: Awake, Oriented and AOx3
Cardiovascular: Regular rate & rhythm, Rub (likely friction rub from chest tubes) and No Gallop
Respiratory: Decreased Breath Sounds (at bases, otherwise clear)
Sternum: Stable
Incision: Clean, Dry, Intact and Dressing Intact
Extremities: No Edema
Data Reviewed
-
Lab Results: Results Reviewed
Medications: Active Meds Reviewed
Chest X-Ray: Report Reviewed and Image Reviewed
ECG: Report Reviewed and Image Reviewed
[2025-06-26 04:16] LABS: Blood Urea Nitrogen 18 mg/dl (9-20); Calcium 9.1 mg/dl (8.4-10.2); Carbon Dioxide 26 mmol/L (22-30); Chloride 109 mmol/L (98-107); Estimated Creatinine Clearance 93 ml/min; Glucose 85 mg/dl (70-99); Magnesium 2.1 mg/dl (1.6-2.3); Potassium 4.7 mmol/L (3.5-5.1); Sodium 138 mmol/L (135-145); eGFR > 60.00
[2025-06-26] MEDS: TYLENOL 975 MG PO ×3 (05:53→19:31)
[2025-06-26] MEDS: DILAUDID 0.25 MG IV (05:53)
[2025-06-26 06:09] LABS: Glucose - Point of Care 95 mg/dl (70-99)
[2025-06-26] MEDS: TORADOL 15 MG IV ×3 (06:43→22:22)
[2025-06-26] MEDS: VITAMIN C 500 MG PO (07:57)
[2025-06-26] MEDS: LOW STRENGTH ASPIRIN 81 MG PO (07:57)
[2025-06-26] MEDS: NEURONTIN 100 MG PO ×3 (07:57→22:21)
[2025-06-26] MEDS: BACTROBAN 2% OINTMENT 1 APPLIC NASAL ×2 (07:58→19:29)
[2025-06-26] MEDS: MAGNESIUM OXIDE 400 MG PO ×2 (07:58→19:27)
[2025-06-26] MEDS: PROTONIX 40 MG PO (07:58)
[2025-06-26] MEDS: PLAVIX 75 MG PO (07:58)
[2025-06-26] MEDS: SENOKOT 8.6 MG PO ×2 (07:58→19:28)
[2025-06-26] MEDS: FEOSOL 325 MG PO (07:58)
[2025-06-26] MEDS: LIDOCAINE 4% PATCH 1 PATCH TOPICAL (07:59)
[2025-06-26 08:04] LABS: Glucose - Point of Care 112 mg/dl (70-99)
--- NOTE | 2025-06-26 08:30 | PTCARENOTE ---
Patient received from shift commander resting oob in chair, AAO X 3, states pain controlled at this time. NSR via cm, SaO2 @ 95% on RA. RIJ Cordis w/kvo infusing. Mediastinal chest tubes x 2 Y-connected to one pleurevac, L and R pleural chest tubes
Y-connected to separate pleurevac, both chambers to -20cm suction w/no air leaks appreciated. Burton catheter d/c'd 0500, DTV, denies urge. All procedural sites stable. Patient updated to plan of care for the day, in agreement. I.S. demonstrated to
1500ml. See work list for full assessment and interventions performed.
--- NOTE | 2025-06-26 08:43 | W.PN.INTV ---
Today's Communication / Plan
Recommendations
- Transition IV insulin per protocol
- Incentive spirometry, increase activity as tolerated
- Electrical Checkout Mechanic service will sign off once patient is transferred out of CVICU
Assessment
-
69-year-old patient with history of myocardial infarction in 04/2025, s/p PCI 04/2025, now s/p coronary artery bypass graft and ELAA POD # 1
On ASA, Plavix, and Lipitor.
Titrated off pressors per protocol. Currently MAP of 76, not requiring any pressors.
JEANETTE reviewed with normal function, 55% with grade 1 diastolic dysfunction
Management of chest tubes per primary service
Extubated to room air, currently saturating 94% on room air, work of breathing normal, no respiratory distress noted.
Pain control
CXR with slightly increased right lower lobe atelectasis. Encouraged incentive spirometry, increase activity as tolerated
No prior history of pulmonary disease, smoked briefly in teen years. No known history of COPD, asthma or emphysema
Can add nebulizers if needed
Aspiration precautions
Encouraged incentive spirometry, OOB/ambulation/early mobility
Advance diet as tolerated following extubation
GI prophylaxis: Protonix
Monitor critical I/O's
Burton/chest tube output
Hb/platelets postoperatively, mild expected drift noted
Trend CBC for now
Can transfuse if indicated for Hb <7, plt <50 in surgical patients
DVT prophylaxis including SCDs
Insulin protocol initiated and ongoing, anticipate patient will come off insulin infusion later today
Transition to SQ/off as indicated per team
Other medical diagnoses:
- Calcified granulomas, pulmonary
- HTN
- HLD
- NSVT
Critical Care time 42 mins -- The patient is admitted for acute critical illness for the treatment of vital organ failure and/or prevention of further life-threatening conditions. Total care includes time spent in review of history, physical exam,
medications, hemodynamic/ventilator parameters, laboratory data, imaging and discussion with house staff, pharmacy, respiratory therapy, car rider, and nursing
Data:
Chest CT 05/2025: 1. No acute findings within the chest. Calcified granulomas.
2. Normal caliber, minimally calcified thoracic aorta.
3. Moderate to severe coronary artery calcifications.
4. Additional findings above.
LHCs 04/2025: 1. Successful stenting of the distal right coronary artery into the PDA with placement of a 2.25 x 26 mm Kris stent. The distal portion of the stent was postdilated with a 2.25 mm noncompliant balloon while the proximal midportion of
the stent was postdilated with a 3.25 mm noncompliant balloon between 20 and 22 ysabel.
1. Late presentation of inferior wall myocardial infarction with symptoms present for over 12 hours. He became chest pain-free en route to the hospital and has remained chest pain-free prior to and throughout the procedure. The distal right
coronary artery was found to be 100% occluded and his troponin measured 6.22 ng/mL on admission. His late presentation of the inferior wall myocardial infarction will be treated medically
2. Residual coronary disease involving the distal left main, proximal and mid LAD, and ostial circumflex would likely benefit from coronary artery bypass surgery
3. Low normal LVEF
ECHO 04/2025: 1. Left ventricle: Normal size and function with an estimated ejection
fraction of 55-60%. Normal diastolic function
2. Right ventricle: Normal
3. Atria: Normal
4. Mitral valve: Mild mitral regurgitation
5. Aortic valve: Mildly thickened. No aortic stenosis or aortic insufficiency
6. Tricuspid valve: Trace tricuspid regurgitation with estimated pulmonary
artery systolic pressures of 25-30 mmHg
7. No prior studies for comparison
Subjective Dataa
Subjective Data
Date of Service:
Date of Service: June 26, 2025
Subjective:
Patient was comfortably sitting in chair in no acute distress.
Review of Systems
Genitourinary: Other (Other than postoperative pain, all 14 systems reviewed and negative except as stated above in the history of present illness.)
Objective Data
Data Reviewed
Vital Signs / I&O / Oxygen:
Vital Signs
Temp Pulse Resp BP Pulse Ox
98.2 F 78 16 92/67 95
06/26/25 08:00 06/26/25 08:15 06/26/25 08:00 06/26/25 08:00 06/26/25 08:20
Intake and Output
06/25/25 06/26/25 06/27/25
06:59 06:59 06:59
Intake Total 2171.75 / 2192.75 43.3 / 43.3
Output Total 1603 / 1603 40 / 40
Balance 568.75 / 589.75 3.3 / 3.3
SaO2 [CPAP/PSV] 100
SaO2 [SIMV] 100
SaO2 95
Nasal Cannula flow liters per 3
minute
Physical Exam
General: Comfortable
HEENT: Normocephalic
Cardiovascular: S1-S2
Respiratory: Clear and Non-Labored Respirations
GI: Soft and Non Distended
Neurology: Awake and Alert
Skin: Warm
Labs/Micro/Reports
Lab Data
06/26/25 03:25
06/26/25 03:25
Laboratory Results
06/25/25 06/25/25
12:36 16:26
PT 17.0 H
INR 1.36
APTT 27.5
pH 7.38 7.38
pCO2 40 38
pO2 159 H 181 H
HCO3 23.7 22.5
O2 Delivery Level Vent
--- NOTE | 2025-06-26 09:29 | W.PN.ANS.POP ---
Anesthesia Post Operative
- Anesthesia Post Op Note
Vital Signs Stable-See Nursing Note: Yes
Airway Patent: Yes
Adequate Pain Control: Yes
Change in Mental Status: No
Current Postoperative Nausea & Vomiting: No
Anesthesia Complications: No
General Anesthetic Recall: No
Unplanned Admission: No
Post Op Hydration Adequate: Yes
[2025-06-26 10:26] LABS: Glucose - Point of Care 86 mg/dl (70-99)
[2025-06-26] MEDS: NSS IV (11:14)
[2025-06-26 11:45] LABS: Glucose - Point of Care 95 mg/dl (70-99)
--- NOTE | 2025-06-26 12:10 | PTCARENOTE ---
VS obtained, assessment stable. Patient having lunch, oob in chair. Visitor at bedside.
--- NOTE | 2025-06-26 13:53 | W.PN.CARDCBS ---
Addendum entered and electronically signed by Kavin Herrera MD 06/26/25 17:39:
Patient now off drips, still with chest tubes, [place] discontinued, amiodarone on hold for bradycardia, metoprolol ER also on hold
No atrial fibrillation
Meds reviewed
Data reviewed
117/61, pulse 76, respiratory rate 16, afebrile, sats 95%
Slightly diminished breath sounds in bases, soft rub, incision intact, no edema significant other at bedside
Chest x-ray cardiomegaly, blunting left lung base, clip appearance,
ECG sinus rhythm, nonspecific ST and T changes, IMI, low voltage
Hemoglobin 9.5, white count 12.8's, BUN/creatinine 18 and 0.9, potassium 4.7
Impression:
Admitted for planned CABG 06/25/25
Recent admission for STEMI and RCA PCI 05/08/25 until 05/10/25
CAD
s/p late presentation IWMI and MV CAD by initial cardiac cath followed by second cardiac cath and PCI with 2.25 mm Kris BENNY to the distal RCA 05/08/2025
s/p MAU to LAD, GSV to medial D1 branch, GSV to Diag-1 06/25/25HTN
Hyperlipidemia
NSVT
Plan:
Doing well postop day [address] surgical team
Amiodarone and metoprolol now on hold
Continue supportive care
Original Note:
Today's Communication / Plan
-
Levo weaned
Amiodarone on hold for bradycardia
Toprol-XL on hold for hypotension
Will follow
Impression / Plan
-
PCP: Dr. Becker
Card: Dr. Campo
Impression:
Admitted for planned CABG 06/25/25
Recent admission for STEMI and RCA PCI 05/08/25 until 05/10/25
CAD
s/p late presentation IWMI and MV CAD by initial cardiac cath followed by second cardiac cath and PCI with 2.25 mm [place] BENNY to the distal RCA 05/08/2025
s/p MAU to LAD, GSV to medial D1 branch, GSV to Diag-1 06/25/25
HTN
Hyperlipidemia
NSVT
Echo 05/08/2025: EF 55 to 60%, normal diastolic function, normal RV size and function, mild MR, no or aortic insufficiency
JEANETTE 06/25/2025: Preop EF 55%, no WMA, mild MR, postop EF 55 to 60% RV and LV function normal, mild central MR unchanged from preop level
Plan:
-Patient presented to the ER on 05/10/2025 as a prehospital STEMI alert and was taken urgently to the [facility] Coordinator where he was found to have MV CAD that was felt to be a late presentation IWMI. Following consultation with CT surgery and because of
recurrent pain the patient return to the Budget Coordinator for RCA PCI. The patient returns now for planned CABG with details outlined above.
-Levophed weaned off 06/25/2025 PM
-Outpatient dose of Toprol-XL 25 mg daily has transitioned to Toprol-XL 12.5 mg twice daily while postop and dose held on 06/26/2025 due to hypotension
-ECG from 06/26/2025 reviewed by me and patient is SR with QTc 438 ms.
-Amiodarone 200 mg TID was started postop, but dose held due to bradycardia
-Outpatient dose of aspirin 81 mg daily has been continued
-Outpatient dose of Brilinta 90 mg BID was held preop and patient is now ordered Plavix 75 mg daily
-Outpatient dose of valsartan 80 mg daily remains on hold due to hypotension, resume inpatient versus outpatient pending BP
-LDL was 91 at time of [place] and patient started on atorvastatin 80 mg daily
Progress Note - Process Assistant
Subjective
Date of Service: June 26, 2025
Pain improved after a dose of tramadol
Objective
Labs:
06/26/25 03:25
06/26/25 03:25
Labs
Hgb 9.5 g/dL (13.0-18.0) L 06/26/25 03:25
Hct 27.4 % (39.0-52.0) L 06/26/25 03:25
Plt Count 189 10^3/uL (130-400) D 06/26/25 03:25
PT 17.0 Sec (11.4-14.6) H 06/25/25 12:36
INR 1.36 06/25/25 12:36
APTT 27.5 Sec (23.4-35.0) 06/25/25 12:36
Sodium 138 mmol/L (135-145) 06/26/25 03:25
Potassium 4.7 mmol/L (3.5-5.1) 06/26/25 03:25
BUN 18 mg/dl (9-20) 06/26/25 03:25
Creatinine 0.9 mg/dL (0.7-1.3) 06/26/25 03:25
Glucose 85 mg/dl (70-99) 06/26/25 03:25
Vital Signs and I&O:
Vital Signs
Temp Pulse Resp BP Pulse Ox
97.8 F 76 15 112/75 96
06/26/25 12:00 06/26/25 12:05 06/26/25 12:00 06/26/25 12:00 06/26/25 12:00
Vital Signs
Temp Pulse Resp BP Pulse Ox
97.8 F 76 15 112/75 96
06/26/25 12:00 06/26/25 12:05 06/26/25 12:00 06/26/25 12:00 06/26/25 12:00
Intake & Output
06/24/25 06/25/25 06/26/25 06/27/25
06:59 06:59 06:59 06:59
Intake Total 2171.75 / 2192.75 848.6 / 848.6
Output Total 1603 / 1603 130 / 130
Balance 568.75 / 589.75 718.6 / 718.6
Physical Exam
Physical Exam
GEN: NAD. AAOx3
LUNGS: RA. No wheeze
CV: SR on tele. No murmur
EXT: No edema B/L
[2025-06-26] MEDS: PACERONE 200 MG PO ×2 (15:57→22:22)
--- NOTE | 2025-06-26 16:00 | PTCARENOTE ---
VS obtained, assessment stable. Patient remains oob in chair. Assisted to ambulate in quach approximately 100 feet, tolerated well.
[2025-06-26] MEDS: LIPITOR 80 MG PO (17:58)
[2025-06-26] MEDS: FLOMAX 0.4 MG PO (19:08)
[2025-06-26] MEDS: TOPROL XL 12.5 MG PO (19:25)
--- NOTE | 2025-06-26 20:00 | PTCARENOTE ---
Assumed care of patient from prior shift RN, patient was oob in chair, ambulated to bed, AAO X 3, states pain 7/10 PRN meds given . NSR on monitor, SaO2 @ 97% on RA. RIJ Cordis. 2 x Mediastinal chest tubes, and L and R pleural chest tubes to -20cm
wall suction w/no air leaks. Oral medication given without issue. All surgical sites stable, CDI. See work list for full assessment details.
[2025-06-27] VITALS (18 sets, daily range): BP systolic 90–169; BP diastolic 56–97; PULSE 88; O2SAT 95–99; BMI 26.0
--- NOTE | 2025-06-27 00:01 | PTCARENOTE ---
patient resting in bed, uses IS with good effort. CT drain minimum serosanguineous output.
[2025-06-27 03:32] LABS: Hematocrit 25.3 % (39.0-52.0); Hemoglobin 8.8 g/dL (13.0-18.0); Mean Corp Hgb Conc. 34.8 g/dL (33.0-37.0); Mean Corpuscular Volume 90.0 fL (80.0-94.0); Platelet Count 148 10^3/uL (130-400); Red Cell Dist. Width 12.4 % (11.5-14.5)
[2025-06-27 03:33] LABS: Blood Urea Nitrogen 24 mg/dl (9-20); Calcium 8.3 mg/dl (8.4-10.2); Carbon Dioxide 29 mmol/L (22-30); Chloride 105 mmol/L (98-107); Estimated Creatinine Clearance 76 ml/min; Glucose 119 mg/dl (70-99); Magnesium 1.9 mg/dl (1.6-2.3); Potassium 4.2 mmol/L (3.5-5.1); Sodium 134 mmol/L (135-145); eGFR > 60.00
--- NOTE | 2025-06-27 04:20 | W.PN.CT ---
Addendum entered and electronically signed by Kostas Phan MD 06/27/25 06:08:
I saw and examined the patient.
The PA's note was reviewed and I agree with the note.
Comment:
Postop day #2, doing well. Slight tachycardia over the evening. Currently 86 and sinus with stable hemodynamics.
- DC chest tubes today
- Continue diuresis
- Continue beta-kal and p.o. Amio today
- Encourage out of bed, ambulation, IS
- Discharge planning for 1 to 2 days
Original Note:
Today's Communication / Plan
-
Plan:
-No major issues overnight. Hemodynamically and neurologically intact
-Off all drips
-Was bradycardic postop yesterday, now noted to be tachycardic with activity, BP has improved. Will increase Toprol XL to 25 mg BID, also on PO Amiodarone
-Required Amiodarone bolus x 1 this AM, for tachycardia 110 bpm
-Had some postop urinary retention which has resolved, on Flomax
-Monitor chest tube for possible D/C: 2meds 35/125, R/L pleurals 40/220
-Cont. current meds (ASA, Plavix, Lipitor, Protonix, Amiodarone, Toprol XL)
-Maintain cordis another day for phlebotomy and meds
-No temporary PW
-Encourage use of IS
-Wean O2 as tolerated
-OOB into chair/Ambulate
-Home in 1-2 days
Assessment / Plan
-
Assessment:
S/P Median sternotomy/CABG x 3 (MAU to LAD, GSV to medial D1 branch, GSV to lateral D1 branch {RI})/Endoscopic harvest/prep of RLE GSV/ELAA (40mm AtriClip), by Dr. Phan, 06/25/25, pod#2
-Multivessel CAD/ 75% distal LM disease
-Recent IWMI S/P PCI with BENNY to distal RCA, 05/08/25
-Brilinta washout
-Mild MR
-LVEF 55% per intraop JEANETTE
-NSVT
-HTN
-HLD
-GERD
-Vertigo
-Bradycardia
-Anemia
-Zygomatic arch fracture
-Right neck skin ca S/P excision
-S/P left shoulder arthroscopy
-Tonsillitis s/p tonsillectomy
-Acute postop blood loss anemia on preop Anemia (stable without transfusion)
-Acute postop atelectasis
-Acute postop hypovolemia with subsequent hypervolemia
-Acute postop hyponatremia, 134
-Acute postop bradycardia
-Acute postop tachycardia
-Acute postop urinary retention
Discussed patient care with: Cardiology, Nursing, Respiratory Therapy, Pharmacy and Care Team
Subjective
Procedure
S/P Median sternotomy/CABG x 3 (MAU to LAD, GSV to medial D1 branch, GSV to lateral D1 branch {RI})/Endoscopic harvest/prep of RLE GSV/ELAA (40mm AtriClip), by Dr. Phan, 06/25/25
-
Date of Service: June 27, 2025
Pt c/o mild incisional pain, otherwise feels well
Objective Data
-
Lab Results
06/27/25 02:55
06/27/25 02:55
PT 17.0 Sec (11.4-14.6) H 06/25/25 12:36
INR 1.36 06/25/25 12:36
APTT 27.5 Sec (23.4-35.0) 06/25/25 12:36
Vital Signs
Vital Signs
Temp Pulse Resp BP Pulse Ox
99 F 90 18 92/64 96
06/26/25 19:34 06/27/25 02:45 06/27/25 00:53 06/27/25 02:00 06/27/25 02:45
CT Intake/Output/Weight
06/26/25 06/26/25 06/27/25
06:59 18:59 06:59
Intake Total 641.95 / 2182.75 1448.6 / 1678.6 230 / 1678.6
Output Total 848 / 1603 445 / 505 60 / 505
Balance -206.05 / 579.75 1003.6 / 1173.6 170 / 1173.6
SaO2: 96 (2L)
Physical Exam
-
General: Awake, Oriented and AOx3
Cardiovascular: Regular rate & rhythm, No Murmurs, Rub (mild friction rub) and No Gallop
Respiratory: Decreased Breath Sounds (at bases, otherwise clear)
Sternum: Stable
Incision: Clean, Dry, Intact and Dressing Intact
Extremities: Other (+trace edema)
Data Reviewed
-
Lab Results: Results Reviewed
Medications: Active Meds Reviewed
Chest X-Ray: Report Reviewed and Image Reviewed
ECG: Report Reviewed and Image Reviewed
[2025-06-27] MEDS: CALCIUM GLUCONATE 100 IV (04:40)
[2025-06-27] MEDS: ROXICODONE 5 MG PO ×3 (04:45→21:45)
[2025-06-27] MEDS: CORDARONE 103 MG IV (05:44)
[2025-06-27] MEDS: ZOFRAN 4 MG IV (05:52)
[2025-06-27] MEDS: TYLENOL PO ×2 (07:28→21:44)
--- NOTE | 2025-06-27 09:00 | PTCARENOTE ---
Patient received from manager shift RN; AAOx3, responds spontaneously to RN and follows commands; Forgetful and uncooperative at times; NSR on monitor; VSS; Trace edema in B/L LE; +2 DP and radial pulses present; Shallow respirations; Lungs diminished
at bases; SpO2 94-97% on 2L NC; CTx4 to -20 cm wall suction draining serosanguineous drainage - no air leak, tidaling, or crepitus noted; Normoactive BS; Patient urinating diana, clear urine; Surgical sites intact; PIVx1; RIJ Cordis with KVO
infusing; IV Lasix 40 mg ordered and given; see nursing documentation for further details.
[2025-06-27] MEDS: LASIX 40 MG IV (09:16)
[2025-06-27] MEDS: VITAMIN C 500 MG PO (09:16)
[2025-06-27] MEDS: BACTROBAN 2% OINTMENT 1 APPLIC NASAL ×2 (09:16→19:34)
[2025-06-27] MEDS: PROTONIX 40 MG PO (09:16)
[2025-06-27] MEDS: LOW STRENGTH ASPIRIN 81 MG PO (09:16)
[2025-06-27] MEDS: SENOKOT 8.6 MG PO ×2 (09:16→21:45)
[2025-06-27] MEDS: TOPROL XL 25 MG PO ×2 (09:16→19:34)
[2025-06-27] MEDS: PLAVIX 75 MG PO (09:16)
[2025-06-27] MEDS: MAGNESIUM OXIDE 400 MG PO ×2 (09:16→19:37)
[2025-06-27] MEDS: FLOMAX 0.4 MG PO (09:17)
[2025-06-27] MEDS: NEURONTIN 100 MG PO ×3 (09:17→21:45)
[2025-06-27] MEDS: PACERONE 200 MG PO ×3 (09:17→21:46)
[2025-06-27] MEDS: FEOSOL 325 MG PO (09:17)
[2025-06-27] MEDS: LIDOCAINE 4% PATCH TOPICAL (09:49)
--- NOTE | 2025-06-27 12:15 | PTCARENOTE ---
Chest tubes x4 removed by RN at bedside - VSS and no complications noted; Patient ambulating with cardiac rehab in hallways; Patient urinating clear, yellow urine in bathroom independently - very impulsive and unsteady at times; RN telling patient
to ring prior to getting up due to unsteadiness at times - bed alarm on and call montero within reach; Patient resting comfortably in bed at this time
[2025-06-27] MEDS: NSS IV (12:20)
[2025-06-27] MEDS: TYLENOL 975 MG PO (13:55)
--- NOTE | 2025-06-27 14:28 | W.PN.CARDCBS ---
Today's Communication / Plan
-
Continue postop care
Compensated CV status
Impression / Plan
-
PCP: Dr. Becker
Card: Dr. Campo
Impression:
Admitted for planned CABG 06/25/25
Recent admission for STEMI and RCA PCI 05/08/25 until 05/10/25
CAD
s/p late presentation IWMI and MV CAD by initial cardiac cath followed by second cardiac cath and PCI with 2.25 mm [place] BENNY to the distal RCA 05/08/2025
s/p MAU to LAD, GSV to medial D1 branch, GSV to Diag-1 06/25/25 Dr Phan
HTN
Hyperlipidemia
NSVT
Echo 05/08/2025: EF 55 to 60%, normal diastolic function, normal RV size and function, mild MR, no or aortic insufficiency
JEANETTE 06/25/2025: Preop EF 55%, no WMA, mild MR, postop EF 55 to 60% RV and LV function normal, mild central MR unchanged from preop level
Plan:
-Patient presented to the ER on 05/10/2025 as a prehospital STEMI alert and was taken urgently to the [facility] where he was found to have MV CAD that was felt to be a late presentation IWMI. Following consultation with CT surgery and because of
recurrent pain the patient return to the [facility] for RCA PCI. The patient returns now for planned CABG with details outlined above.
Cont post op care, continues to improve.
Amiodarone and Metoprolol resumed after being held for bradycardia
Cont ASA and Plavix and statin.
Valsartan held for hypotension
Progress Note - Deputy Director Of Nursing
Subjective
Date of Service: June 27, 2025
Pt seen and examined. No complaints. No chest pain or shortness of breath.
Objective
Labs:
06/27/25 02:55
06/27/25 02:55
Labs
Hgb 8.8 g/dL (13.0-18.0) L 06/27/25 02:55
Hct 25.3 % (39.0-52.0) L 06/27/25 02:55
Plt Count 148 10^3/uL (130-400) D 06/27/25 02:55
PT 17.0 Sec (11.4-14.6) H 06/25/25 12:36
INR 1.36 06/25/25 12:36
APTT 27.5 Sec (23.4-35.0) 06/25/25 12:36
Sodium 134 mmol/L (135-145) L 06/27/25 02:55
Potassium 4.2 mmol/L (3.5-5.1) 06/27/25 02:55
BUN 24 mg/dl (9-20) H 06/27/25 02:55
Creatinine 1.1 mg/dL (0.7-1.3) 06/27/25 02:55
Glucose 119 mg/dl (70-99) H 06/27/25 02:55
Vital Signs and I&O:
Vital Signs
Temp Pulse Resp BP Pulse Ox
99.3 F 92 18 99/63 94
06/27/25 12:11 06/27/25 12:09 06/27/25 12:11 06/27/25 12:09 06/27/25 12:14
Vital Signs
Temp Pulse Resp BP Pulse Ox
99.3 F 92 18 99/63 94
06/27/25 12:11 06/27/25 12:09 06/27/25 12:11 06/27/25 12:09 06/27/25 12:14
Intake & Output
06/25/25 06/26/25 06/27/25 06/28/25
06:59 06:59 06:59 06:59
Intake Total 2171.75 / 2182.75 2128.6 / 2128.6
Output Total 1603 / 1603 820 / 820 1130 / 1130
Balance 568.75 / 579.75 1308.6 / 1308.6 -1130 / -1130
Physical Exam
Physical Exam
General: No acute distress, AAOX3
Neck: Negative JVD
Heart: Regular, Negative S3 positive S1/S2, Negative S4, No murmur
Lungs: CTA b/l, negative wheezes/rales/rhonchi
Abd: Positive BS, NT/ND, neg rebound/rigidity/guarding
Ext: Negative cyanosis/clubbing/edema
Neuro: nonfocal
--- NOTE | 2025-06-27 17:44 | PTCARENOTE ---
Patient ambulating in hallways with RN; Constant reinforcement given regarding sternal precautions and being more cautious regarding ambulation; Fall risk bracelet applied; Call montero within reach
[2025-06-27] MEDS: LIPITOR 80 MG PO (18:06)
--- NOTE | 2025-06-27 23:00 | PTCARENOTE ---
report received from previous RN, walking rounds done. pt AAOx4, denies any pain at this time. VSS. NSR on monitor, HR 70s. +peripheral pulses. trace bilateral LE edema noted. RIJ cordis intact w KVO infusing. bilateral breath sounds present. POX
96% on 2LNC. IS encouraged. +BS. abdomen soft, nontender. pt voids in urinal without difficulty. all surgical sites stable. see worklist for full assessment, VS, and interventions.
--- NOTE | 2025-06-28 03:52 | W.PN.CT ---
Today's Communication / Plan
-
-pod #3
-no issues overnight
-diuresed with 40 iv Lasix on 06/27 (UO 1050+)
-current meds (ASA, Plavix, Lipitor, Protonix, Amiodarone, Toprol XL 25 bid, Feosol, vit C)
-encourage IS, OOB, ambulate
Assessment / Plan
-
Assessment:
S/P Median sternotomy/CABG x 3 (MAU to LAD, GSV to medial D1 branch, GSV to lateral D1 branch {RI})/Endoscopic harvest/prep of RLE GSV/ELAA (40mm AtriClip), by Dr. Phan, 06/25/25, pod#3
-Multivessel CAD/ 75% distal LM disease
-Recent IWMI S/P PCI with BENNY to distal RCA, 05/08/25
-Brilinta washout
-Mild MR
-LVEF 55% per intraop JEANETTE
-NSVT
-HTN
-HLD
-GERD
-Vertigo
-Bradycardia
-Anemia
-Zygomatic arch fracture
-Right neck skin ca S/P excision
-S/P left shoulder arthroscopy
-Tonsillitis s/p tonsillectomy
-Acute postop blood loss anemia on preop Anemia (stable without transfusion)
-Acute postop atelectasis
-Acute postop hypovolemia with subsequent hypervolemia
-Acute postop hyponatremia, 134
-Acute postop bradycardia
-Acute postop tachycardia
-Acute postop urinary retention-resolved
Discussed patient care with: Nursing and Care Team
Subjective
Procedure
S/P Median sternotomy/CABG x 3 (MAU to LAD, GSV to medial D1 branch, GSV to lateral D1 branch {RI})/Endoscopic harvest/prep of RLE GSV/ELAA (40mm AtriClip), by Dr. Phan, 06/25/25
-
Date of Service: June 28, 2025
Objective Data
-
PT 17.0 Sec (11.4-14.6) H 06/25/25 12:36
INR 1.36 06/25/25 12:36
APTT 27.5 Sec (23.4-35.0) 06/25/25 12:36
Vital Signs
Vital Signs
Temp Pulse Resp BP Pulse Ox
98.9 F 77 18 107/68 95
06/27/25 23:23 06/28/25 00:00 06/27/25 23:23 06/27/25 23:23 06/27/25 23:30
CT Intake/Output/Weight
06/27/25 06/27/25 06/28/25
06:59 18:59 06:59
Intake Total 680 / 2128.6 240 / 520 280 / 520
Output Total 375 / 820 1130 / 1130
Balance 305 / 1308.6 -890 / -610 280 / -610
SaO2: 95
Physical Exam
-
General: Awake and AOx3
Cardiovascular: Regular rate & rhythm, No Murmurs and No Rub
Respiratory: Decreased Breath Sounds
Sternum: Stable
Incision: Clean, Dry and Intact
Extremities: No Edema (2+DPs b/l)
Abdomen: soft, nontender, nondistended, + bowel sounds
Data Reviewed
-
Lab Results: Results Reviewed
Medications: Active Meds Reviewed
Chest X-Ray: Report Reviewed and Image Reviewed
ECG: Report Reviewed and Image Reviewed
[2025-06-28] MEDS: TYLENOL 975 MG PO (05:39)
[2025-06-28] MEDS: ROXICODONE 5 MG PO (05:39)
[2025-06-28 05:40] VITALS: BP 122/74
[2025-06-28 05:50] VITALS: BMI 25.5
--- NOTE | 2025-06-28 06:00 | PTCARENOTE ---
no changes in assessment, VSS. SR 70s-80s. POX 96% on room air. pt ambulating halls independently without difficulty.
[2025-06-28 06:30] LABS: Hematocrit 25.3 % (39.0-52.0); Hemoglobin 8.8 g/dL (13.0-18.0); Mean Corp Hgb Conc. 34.8 g/dL (33.0-37.0); Mean Corpuscular Volume 90.4 fL (80.0-94.0); Platelet Count 150 10^3/uL (130-400); Red Cell Dist. Width 12.0 % (11.5-14.5)
[2025-06-28 07:07] LABS: Blood Urea Nitrogen 18 mg/dl (9-20); Calcium 8.3 mg/dl (8.4-10.2); Carbon Dioxide 29 mmol/L (22-30); Chloride 103 mmol/L (98-107); Estimated Creatinine Clearance 83 ml/min; Glucose 117 mg/dl (70-99); Magnesium 1.7 mg/dl (1.6-2.3); Potassium 4.0 mmol/L (3.5-5.1); Sodium 133 mmol/L (135-145); eGFR > 60.00
[2025-06-28 07:41] VITALS: BP 103/65
[2025-06-28] MEDS: BACTROBAN 2% OINTMENT 1 APPLIC NASAL (07:43)
[2025-06-28] MEDS: MILK OF MAGNESIA 30 ML PO (07:43)
[2025-06-28] MEDS: PLAVIX 75 MG PO (07:43)
[2025-06-28] MEDS: FEOSOL 325 MG PO (07:43)
[2025-06-28] MEDS: PROTONIX 40 MG PO (07:43)
[2025-06-28] MEDS: SENOKOT 8.6 MG PO (07:43)
[2025-06-28] MEDS: VITAMIN C 500 MG PO (07:44)
[2025-06-28] MEDS: TOPROL XL 25 MG PO (07:44)
[2025-06-28] MEDS: LIDOCAINE 4% PATCH TOPICAL (07:44)
[2025-06-28] MEDS: LOW STRENGTH ASPIRIN 81 MG PO (07:44)
[2025-06-28] MEDS: NEURONTIN 100 MG PO (07:44)
[2025-06-28] MEDS: PACERONE 200 MG PO (07:44)
[2025-06-28] MEDS: LASIX 40 MG IV (07:44)
[2025-06-28] MEDS: MAGNESIUM OXIDE 400 MG PO (07:44)
--- NOTE | 2025-06-28 08:00 | PTCARENOTE ---
Patient received from conference assistant RN; AAOx3, responds spontaneously to RN and follows commands; Forgetful; NSR on monitor; VSS; Trace edema in B/L LE; +2 DP and radial pulses present; Shallow respirations; Lungs diminished at bases; SpO2 94-97% on
RA; IS 1500 ml; Poor appetite, no BM since surgery - PRN Milk of Magnesia given accordingly; Patient frequently urinating clear, yellow urine; Surgical sites intact; PIVx1 - #20 right forearm; RIJ Cordis removed by RN at bedside - VSS and no
complications noted; IV Lasix 40 mg ordered and given; see nursing documentation for further details.
[2025-06-28 09:59] VITALS: BP 107/68
[2025-06-28 10:02] VITALS: BP 118/76
[2025-06-28 10:09] VITALS: BP 107/68; BP 118/76; PULSE 80; O2SAT 93; O2SAT 95
--- NOTE | 2025-06-28 10:23 | W.DCSUMMARY ---
Discharge Summary
Discharge Data
Date of Admission: 06/25/25
Date of Discharge: 06/28/25
Total time spent discharging patient (in min): 36
-
Pending Results: No
Hospital Course
Primary care physician:
Dr. Becker
Outpatient engine installer:
Dr. Campo
Inpatient consultants:
DCA, steward/stewardess chief cargo vessel
Procedures:
1. Coronary Artery Bypass x3 (Patel-LAD, SVG- D1 (medial branch), SBG- D1 (lateral branch)
Primary Diagnosis:
1. Multivessel coronary artery disease
Secondary Diagnoses:
1. Hypertension
2. Hyperlipidemia
3. non-sustained ventricular tachycardia
4. Postoperative hypotension
5. Postoperative fluid overload
HPI: 69 year old male was electively admitted on 06/25/25 for CABG. Patient had recent admission on 05/08/2025 for inferior wall STEMI. Patient underwent stent x 2 to culprit RCA vessel and was discharged home and was readmitted on 06/25 for a
planned CABG with Dr. Phan.
Hospital course: Patient was admitted on 06/25 for an elective CABG with Dr. Phan. Postoperatively he returned to the CVICU on Levophed Precedex and insulin. Precedex was weaned off and patient was extubated by 163. He was given 1 L of
lactated Ringer's postoperatively and was started on Toradol for pain control. On 06/26 postoperative day 1, patient was mildly hypotensive so beta-blockers were held however throughout the day patient's blood pressure improved and had episodes of
atrial tachycardia therefore beta-blockers and amiodarone was resumed. On 06/27 postoperative day 2, patient was improving. Chest tubes were removed and he was diuresed with 40 mg of IV Lasix. Beta-blockers were uptitrated which he tolerated well.
On 06/28 postoperative day 3, patient's central line was removed he ambulated the halls well and he was deemed stable for discharge home. He will be discharged on Plavix for 1 year and on Lasix orally for 3 days.
Home medication changes:
see below
Discharge Plan
-
Patient Disposition: Home (Routine Discharge)
Discharge Diagnosis/Procedures: CABG
Condition: Good
Diet: Low Cholesterol
Activity: No strenuous activity
Driving Restrictions: Not until seen by your Dr
Bathing Restrictions: OK to Shower
Other Services: Cardiac Rehab
Specialty Instructions: Weigh Daily- Call MD for wt gain/loss 3 lbs overnight/5 lbs in 1 week
Activity Restrictions/Additional Instructions:
ACTIVITY:
-No strenuous activity: no heavy lifting, pushing, pulling anything over 15 pounds for one month
-continue to use stairs as tolerated
DRIVING RESTRICTIONS:
-No driving for one month or until approved by your surgeon
WOUND CARE:
-Shower daily. Use soap & water.
-No lotions, creams or powders on incision area.
DIET:
-continue a low fat/low cholesterol diet.
-IF you are diabetic, continue carb controlled diet.
CARDIAC REHAB:
-Please make appointment to start in 5-6 weeks with your local hospital program. (See Cardiac Rehabilitation Discharge Booklet).
SPECIALTY INSTRUCTIONS:
-Weigh yourself daily. Call your physician for any weight gain/loss of 3 lbs overnight or 5 lbs in one week.
-REPORT any clicking noise or uneven appearance of your sternum to your surgeon immediately.
-If you smoke, you are instructed to quit. The [place] smoking hotline phone number is [phone]
Referrals:
CT Transitional Care Nurse [Outside]
Referral Note:
The Cardiothoracic Transitional Care Nurse will call you to set up a visit in 1-2 days.
[facility] [Outside]
Referral Note: Cardiac Rehab Orientation appointment and� First Exercise appointment is on 07/31/2025 at 10:30. Please wear sneakers.
The Cardiac Rehab gym is located on the first floor of the [facility].
Tiffani High CRNP [Specified Professional Personl, Cardiology] - 08/07/25 9:20 am
Kostas Phan MD [Active, Cardiac Surgery] - 07/24/25 1:30 pm
Rashad Becker DO [Family Provider, [facility]]
Additional Discharge Medication Instructions: Please note that your metoprolol succinate dose has changed, you will now be taking it twice a day. Also, your valsartan has been stopped. Please do not resume that unless directed by a medical
professional.
You will also no longer be on brilinta and be on Plavix for one year. After one year please follow up with your engine installer
Prescriptions:
New
acetaminophen 325 mg Tablet
650 mg PO Q4HPRN PRN (Reason: mild pain,headache,temp >101F ) Qty: 0 0RF
clopidogrel 75 mg Tablet
75 mg PO DAILY Qty: 90 0RF
gabapentin 100 mg Capsule
100 mg PO TID Qty: 60 0RF
oxycodone 5 mg Tablet
2.5 mg PO Q6 PRN (Reason: moderate pain) Qty: 10 0RF
pantoprazole 40 mg Tablet,Delayed Release (Dr/Ec)
40 mg PO DAILY Qty: 90 0RF
furosemide [Lasix] 40 mg tablet
40 mg PO DAILY Qty: 3 0RF
Continued
atorvastatin 80 mg Tablet
80 mg PO QPM Qty: 30 11RF
aspirin 81 mg Tablet,Chewable
81 mg PO DAILY Qty: 30 11RF
pantoprazole 40 mg Tablet,Delayed Release (Dr/Ec)
40 mg PO DAILY Qty: 30 11RF
Changed
metoprolol succinate 25 mg Tablet Extended Release 24 Hr
25 mg PO BID Qty: 30 11RF
Discontinued
valsartan 80 mg tablet
80 mg PO DAILY
ticagrelor [Brilinta] 90 mg Tablet
90 mg PO BID Qty: 60 11RF
Care Plan Goals
Care Plan Goals:
Problem: Readiness for enhanced knowledge related to diagnosis and treatment plan
Goal: Understand your diagnosis and treatment plan needs, including medications if applicable.
Instructions: Know your diagnosis, underlying causes and treatment plan options, including medications if applicable. Consult with your health care team to learn about your diagnosis and treatment plan, including medications if applicable.
Discharge Date and Time
Print Language: LATVIAN
--- NOTE | 2025-06-28 12:31 | PTCARENOTE ---
Patient discharged to home; Patient states full understanding of discharge instructions and has no further questions at this time; VSS; PIVx1 removed by RN at bedside; CHG shower and 2 view CXR completed; Patient completed stairs with cardiac rehab;
Patient belongings taken with patient and girlfriend; Patient taken by volunteer in wheelchair to girlfriend's car
== END 2025-06-28 12:50 | disposition home or self-care (01) | DRG 236 ==
LOC: CVICU 05:02
PROVIDERS: Anesthesiology; Nurse Practitioner; ADMITTING PHYSICIAN Thoracic Surgery (Cardiothoracic Vascular Surgery); CONSULT PHYSICIAN Internal Medicine; CONSULT PHYSICIAN Internal Medicine Cardiovascular Disease; FAMILY PHYSICIAN Family Medicine
PROC: 5A1221Z Performance of Cardiac Output, Continuous (ICD-10-PCS; 2025-06-25)
PROC: 02100ZC Bypass Coronary Artery, One Artery from Thoracic Artery, Open Approach (ICD-10-PCS; 2025-06-25)
PROC: 06BP4ZZ Excision of Right Saphenous Vein, Percutaneous Endoscopic Approach (ICD-10-PCS; 2025-06-25)
PROC: B24BZZ4 Ultrasonography of Heart with Aorta, Transesophageal (ICD-10-PCS; 2025-06-25)
PROC: 021109W Bypass Coronary Artery, Two Arteries from Aorta with Autologous Venous Tissue, Open Approach (ICD-10-PCS; 2025-06-25)
PROC: 02L70CK Occlusion of Left Atrial Appendage with Extraluminal Device, Open Approach (ICD-10-PCS; 2025-06-25)
DX: I25.10 Atherosclerotic heart disease of native coronary artery without angina pectoris (principal); D62 Acute posthemorrhagic anemia; I47.19 Other supraventricular tachycardia; J98.11 Atelectasis; E87.1 Hypo-osmolality and hyponatremia; I47.29 Other ventricular tachycardia; I95.81 Postprocedural hypotension; E87.70 Fluid overload, unspecified; E86.1 Hypovolemia; R00.1 Bradycardia, unspecified; R33.8 Other retention of urine; I10 Essential (primary) hypertension; E78.00 Pure hypercholesterolemia, unspecified; I34.0 Nonrheumatic mitral (valve) insufficiency; K21.9 Gastro-esophageal reflux disease without esophagitis; I25.2 Old myocardial infarction; Z95.5 Presence of coronary angioplasty implant and graft; Z79.82 Long term (current) use of aspirin
CPT/HCPCS: 36415; 71045; 71046; 80048; 80053; 81003; 81015; 82248; 82330; 82565; 82805; 82810; 82947; 82962; 83036; 83735; 84132; 84302; 84520; 85014; 85018; 85025; 85027; 85049; 85610; 85730; 86850; 86900; 86901; 86920; 87070; 93005; 93312; 93320; 93325; 94002; C1713

== ENCOUNTER 2025-08-09 10:02 | Outpatient (RCR) | payer OTHER, SELFPAY | END 2025-08-09 23:59 | disposition home or self-care (01) | LOC: CRHB 10:02 | PROVIDERS: ATTENDING PHYSICIAN Internal Medicine Cardiovascular Disease; FAMILY PHYSICIAN Family Medicine | DX: Z95.1 Presence of aortocoronary bypass graft (principal) | CPT/HCPCS: G0422; G0423 ==

== ENCOUNTER 2025-09-04 09:44 | Outpatient (RCR) | payer OTHER, SELFPAY | END 2025-09-04 23:59 | disposition home or self-care (01) | LOC: CRHB 09:44 | PROVIDERS: ATTENDING PHYSICIAN Internal Medicine Cardiovascular Disease; FAMILY PHYSICIAN Family Medicine | DX: Z95.1 Presence of aortocoronary bypass graft (principal) | CPT/HCPCS: G0422; G0423 ==